=== PATIENT | female | born 1940 | race Caucasian/White ===

== ENCOUNTER → 2016-09-03 | Outpatient (CLI) | payer OTHER ==
[2016-09-03 13:58] LABS: Blood Urea Nitrogen 21 mg/dL (7-17); Non-African American GFR(MDRD) 51 (>60 ml/min/1.73 sqM)
--- NOTE | 2016-09-03 17:17 | CT ---
EXAMINATION TYPE: CT urogram wo/w con DATE OF EXAM: 09/03/2016 2:40 PM COMPARISON: NONE HISTORY: Patient having frequent UTI CT DLP: 1547 mGycm Automated exposure control for dose reduction was used. CONTRAST: Performed with IV Contrast, patient injected with 80 mL of Visipaque 320. TECHNIQUE: 3-D reconstructed images from a CT urogram or performed separately by the technologist on a separate computer and presented. 2-D reconstructed images are reviewed. Pre and postcontrast imagin g is performed. FINDINGS: Limited CT sections are obtained the lung bases which are unremarkable. CT ABDOMEN: There is a hypodensity within the right lobe liver measuring 1.2 cm may be a hepatic cyst . Spleen is normal density without discrete masses or cysts. The adrenal glands are normal. Pancreas is normal. Gallbladder is unremarkable. Vascular calcifications within the aorta. Inferior vena cava is normal. Some shotty lymphadenopathy may be in the periaortic region. Kidneys appear without masses or hydronephrosis. A cortical renal cyst measuring 0.8 cm on the mid le ft kidney. No hydroureter is evident. Ureters follow a normal caliber and course to the urinary bladder. Urinary bladder fills normally wit hout intraluminal defects. The right renal collecting system does appear somewhat more prominent naina n the left. There is beam hardening artifact from right hip prosthesis causing limitation on the eval uation. Uterus is unremarkable. Adnexal regions are clear. No loops of bowel without contrast appear unremark able. IMPRESSION: 1. RENAL COLLECTING SYSTEM VISUALIZED APPEARS WITHIN NORMAL LIMITS.
== END | disposition home or self-care (01) ==
LOC: RADCTMAIN 13:28
PROVIDERS: ATTEND Family Medicine
DX: N39.0 Urinary tract infection, site not specified (principal)
CPT/HCPCS: 82565; 84520; 74178; 36415; 74400; Q9967

== ENCOUNTER → 2016-11-20 | Outpatient (CLI) | payer OTHER ==
--- NOTE | 2016-11-20 14:18 | MM ---
Reason for exam: history of breast cancer, mastectomy. Last mammogram was performed 1 year ago. History: Patient is postmenopausal and has history of breast cancer at age 69. Family history of breast cancer in sister at age 60. Mastectomy of the right breast, January 15, 2010. Malignant right mammotome panel of the right breast, January 01, 2010. Chemotherapy, 2009. Took estrogen for 12 years. Taking antineoplastic for 6 months beginning at age 69. Physical Findings: Nurse did not find any significant physical abnormalities on exam. MG 3D Diag Mammo W/Cad LT CC and MLO view(s) were taken of the left breast. Prior study comparison: November 20, 2015, left breast MG 3d diag mammo w/cad LT. February 28, 2015, left breast MG diagnostic mammo LT w CAD. The breast tissue is heterogeneously dense. This may lower the sensitivity of mammography. No significant new findings when compared with previous films. These results were verbally communicated with the patient and result sheet given to the patient on 11/20/16. ASSESSMENT: Benign, BI-RAD 2 RECOMMENDATION: Follow-up diagnostic mammogram of the left breast in 1 year.
== END | disposition home or self-care (01) ==
LOC: RADMAMWWP 12:58
PROVIDERS: ATTEND Internal Medicine Hematology & Oncology
DX: Z85.3 Personal history of malignant neoplasm of breast (principal)
CPT/HCPCS: G0206; G0279

== ENCOUNTER 2017-03-12 07:45 | Day surgery (SDC) | payer OTHER ==
[2017-03-11 10:20] VITALS: BMI 31.7
[~2017-03-12 07:45] MED LIST: LACTATED RINGERS 1,000 ML IV SCH
[2017-03-12 08:12] VITALS: TEMP 97
[2017-03-12 08:16] LABS: Glucose,Whole Blood 126 mg/dL (75-99)
[2017-03-12] MEDS ORDERED: LIDOCAINE 1% 20 ML VIAL (10MG/ML) FOR IV START INTRADERMA ONE (08:16)
[2017-03-12] MEDS ORDERED: PROPOFOL 10 MG/ML 20 ML VIAL IV ONE (09:20)
[2017-03-12] MEDS ORDERED: LIDOCAINE 1% INJ 10MG/ML (20 ML MDV) ONE (09:20)
--- NOTE | 2017-03-12 09:32 | P.GSHP ---
History of Present Illness H&P Date: 03/12/17 Chief Complaint: GI bleed, anemia This a 68-year-old female referred from Dr. Mariel Nix. Patient presents today for EGD colonoscopy. She's had issues with GI bleed and anemia. She is Hemoccult-positive. Past Medical History Past Medical History: Cancer, Heart Failure, CVA/TIA, Diabetes Mellitus, GERD/ Reflux, Hypertension, Osteoarthritis (OA), Rheumatoid Arthritis (RA) Additional Past Medical History / Comment(s): hx. gout, urinary incontinence ( has bladder pacemaker-states not working), breast cancer 2010 w/chemo., Hx of TIA X 2, DIABETES - NO CURRENT MEDS., SOB WITH ACTIVITY., CARDIAC PACEMAKER ( 2016) PROBLEMS WITH CONSTIPATION AND DIARRHEA- STATES BLOOD IN STOOL., ANEMIA. History of Any Multi-Drug Resistant Organisms: None Reported Past Surgical History: Back Surgery, Bladder Surgery, Breast Surgery, Cholecystectomy, Joint Replacement, Orthopedic Surgery, Pacemaker Additional Past Surgical History / Comment(s): right hip replaced, right shoulder surg., right mastectomy, surg. for ectopic , spinal fusion, pacemaker, Bladder Pacemaker for urine incontinence. Past Anesthesia/Blood Transfusion Reactions: Previous Problems w/ Anesthesia Additional Past Anesthesia/Blood Transfusion Reaction / Comment(s): stopped breathing after D & C. Very Dizzy after Bladder device. Type of Cardiac Device: Permanent Pacemaker Device Placement Date:: 03/21/2016 Past Psychological History: Anxiety, Depression, PTSD Additional Psychological History / Comment(s): . Smoking Status: Former smoker Past Alcohol Use History: None Reported Additional Past Alcohol Use History / Comment(s): quit smoking 2005. smoked approx 20 yrs, 1 PPD. Past Drug Use History: None Reported - Past Family History Sister(s) Family Medical History: Cancer Additional Family Medical History / Comment(s): breast cancer Mother Family Medical History: CVA/TIA Additional Family Medical History / Comment(s): stroke at age 55 Father Family Medical History: Dementia, Myocardial Infarction ([place]) Additional Family Medical History / Comment(s): lived to be almost 100 Medications and Allergies Home Medications Medication Instructions Recorded Confirmed Type Allopurinol [Zyloprim] 300 mg PO HS 01/22/16 03/12/17 History Atenolol [Tenormin] 25 mg PO HS 01/22/16 03/12/17 History Citalopram Hydrobromide 40 mg PO HS 01/22/16 03/12/17 History [Citalopram HBr] Enalapril [Vasotec] 10 mg PO BID 01/22/16 03/12/17 History Hydrochlorothiazide 12.5 mg PO DAILY 01/22/16 03/12/17 History Simvastatin [Zocor] 10 mg PO HS 01/22/16 03/12/17 History risperiDONE [RisperDAL] 1 mg PO HS 01/22/16 03/12/17 History traMADol HCL [Ultram] 50 mg PO BID 03/19/16 03/12/17 History Aspirin [Adult Low Dose Aspirin EC] 81 mg PO DAILY 03/11/17 03/12/17 History Mirabegron [Myrbetriq] 50 mg PO DAILY 03/11/17 03/12/17 History Naloxegol Oxalate [Movantik] 25 mg PO DAILY 03/11/17 03/12/17 History Omeprazole [PriLOSEC] 40 mg PO QAM 03/11/17 03/12/17 History Allergies Allergy/AdvReac Type Severity Reaction Status Date / Time morphine Allergy Severe Nausea & Verified 03/12/17 08:11 Vomiting scopolamine Allergy Unknown Confusion, Verified 03/12/17 08:11 Aggressive, hitting. codeine Allergy Nausea & Verified 03/12/17 08:11 Vomiting Sulfa (Sulfonamide Allergy Rash/Hives Verified 03/12/17 08:11 Antibiotics) Surgical - Exam Vital Signs Temp Pulse Resp BP Pulse Ox 97.0 F L 95 16 145/78 96 03/12/17 08:04 03/12/17 08:04 03/12/17 08:04 03/12/17 08:04 03/12/17 08:04 - General well developed, no distress - Eyes PERRL - ENT normal pinna - Neck no masses - Respiratory normal expansion - Cardiovascular Rhythm: regular - Abdomen Abdomen: soft, non tender Results - Labs Abnormal Lab Results - Last 24 Hours (Table) 03/12/17 Range/Units 08:13 POC Glucose (mg/dL) 126 H (75-99) mg/dL Assessment and Plan Plan: Anemia, GI bleed. We'll perform EGD and colonoscopy.
--- NOTE | 2017-03-12 09:52 | P.OP ---
Date of Procedure: 03/12/17 Preoperative Diagnosis: GI bleed Anemia Postoperative Diagnosis: Antral gastritis Hiatal hernia Esophagitis Diverticulosis Procedure(s) Performed: EGD Colonoscopy Implants: Anesthesia: MAC Surgeon: Javier Grimes Pathology: other (Antrum, esophagus) Condition: stable Disposition: PACU Indications for Procedure: Operative Findings: Description of Procedure: The patient's placed on the endoscopy table in the lateral position. She received IV sedation. The gastroscope some placed oropharynx and passed in the esophagus and stomach. Scope was then placed through the pylorus. The first and second portion of the duodenum appeared normal. The scope was then brought back the antrum and this appeared mildly inflamed. A biopsies performed. The scope was unretroflexed and remainder of the stomach appeared normal. There was a hiatal hernia visualized. The GE junction was at 38 7 is. The distal esophagus appeared mildly inflamed and a biopsies performed. Scope was then withdrawn and the proximal esophagus appeared normal. Scope was withdrawn for patient. Next digital rectal exam was performed which revealed no abnormalities. The flexible colonoscope was then placed patient anus passed throughout the entire colon. The ileocecal valve was visualized. The cecum, ascending and transverse colon appeared normal. In the descending; was mild diverticular changes. Scope was then brought back the rectum and this appeared normal. Scope was withdrawn for patient.
[2017-03-12 10:21] VITALS: BP 156/82; PULSE 73; RESP 18
== END 2017-03-12 11:19 | disposition home or self-care (01) ==
LOC: ORWHC2ENDO 07:45
PROVIDERS: ATTEND Surgery
DX: R19.5 Other fecal abnormalities (principal); K31.9 Disease of stomach and duodenum, unspecified; K57.30 Diverticulosis of large intestine without perforation or abscess without bleeding; E11.9 Type 2 diabetes mellitus without complications; I10 Essential (primary) hypertension; K21.0 Gastro-esophageal reflux disease with esophagitis; M19.90 Unspecified osteoarthritis, unspecified site; D64.9 Anemia, unspecified; I50.9 Heart failure, unspecified; K44.9 Diaphragmatic hernia without obstruction or gangrene; E78.5 Hyperlipidemia, unspecified; F32.9 Major depressive disorder, single episode, unspecified; M06.9 Rheumatoid arthritis, unspecified; Z79.899 Other long term (current) drug therapy; Z79.82 Long term (current) use of aspirin; Z79.891 Long term (current) use of opiate analgesic; Z88.5 Allergy status to narcotic agent; Z88.2 Allergy status to sulfonamides; Z86.73 Personal history of transient ischemic attack (TIA), and cerebral infarction without residual deficits; Z87.891 Personal history of nicotine dependence; Z90.11 Acquired absence of right breast and nipple
CPT/HCPCS: 88305; 88342; 45378; 43239; J2001; J2704

== ENCOUNTER 2017-04-16 10:00 | Inpatient (IN) | payer OTHER ==
[2017-04-14 17:40] VITALS: BMI 30.2
[~2017-04-16 10:00] MED LIST changes: +DEXAMETHASONE SOD PHOSPHATE 10 MG/ML 1 ML VIAL IV ONE; +HEPARIN SODIUM,PORCINE 5,000 UNIT/ML 1 ML VIAL SQ ONE; +LIDOCAINE 1% 20 ML VIAL (10MG/ML) FOR IV START INTRADERMA PRN; +ONDANSETRON 4 MG/2 ML VIAL IVP ONE; +ceFAZolin 2 GM in SODIUM CHLORIDE 0.9% 100 ML IVPB ONE; +fentaNYL (PF) 50 MCG/ML 2 ML AMP IV PRN
[2017-04-16 12:33] LABS: Glucose,Whole Blood 102 mg/dL (75-99)
[2017-04-16] MEDS ORDERED: BUPIVACAINE (PF) 0.25% 30 ML VIAL SQ ONE ×2 (13:22→14:00)
[2017-04-16] MEDS ORDERED: LIDOCAINE 2%-EPI 1:100,000 20 ML VIAL SQ ONE ×2 (13:22→14:00)
--- NOTE | 2017-04-16 13:22 | P.GSHP ---
History of Present Illness H&P Date: 04/16/17 Chief Complaint: GERD This is a 68-year-old female referred from Dr. Mariel Nix.The patient has had long-standing problems with reflux esophagitis. The patient underwent recent EGD is found have evidence of esophagitis. Patient has been well informed on the procedure of laparoscopic Philip fundoplication. The patient is aware the risk of the conversion to the open procedure, risk of injury to the stomach, liver and spleen. The patient is also a risk of recurrent GERD and dysphagia symptoms. The patient understands there is a postoperative diet of full liquids for 2 weeks after surgery. - Constitutional Constitutional: Reports as per HPI Past Medical History Past Medical History: Cancer, Heart Failure, CVA/TIA, Diabetes Mellitus, GERD/ Reflux, Hypertension, Rheumatoid Arthritis (RA) Additional Past Medical History / Comment(s): gout, urinary incontinence (has bladder pacemaker-states not working), breast cancer 2009 ,DIABETES -diet control., PROBLEMS WITH CONSTIPATION AND DIARRHEA- , ANEMIA. hx migraines, TIA 20 yrs ago, heart murmer, hiatal hernia, diverticulitis, History of Any Multi-Drug Resistant Organisms: None Reported Past Surgical History: Back Surgery, Bladder Surgery, Breast Surgery, Cholecystectomy, Joint Replacement, Orthopedic Surgery, Pacemaker, Tonsillectomy Additional Past Surgical History / Comment(s): right hip replacement, right shoulder surgery., right mastectomy, surgery for ectopic , spinal fusion, pacemaker, Bladder pacemaker for urine incontinence. philip fundoplication Past Anesthesia/Blood Transfusion Reactions: Previous Problems w/ Anesthesia, Postoperative Nausea & Vomiting (PONV) Additional Past Anesthesia/Blood Transfusion Reaction / Comment(s): stopped breathing after D & C. Very Dizzy after bladder pacemaker surgery Type of Cardiac Device: Permanent Pacemaker Device Placement Date:: 03/21/2016 Smoking Status: Former smoker - Past Family History Sister(s) Family Medical History: Cancer Additional Family Medical History / Comment(s): breast cancer Mother Family Medical History: CVA/TIA Additional Family Medical History / Comment(s): stroke at age 55 Father Family Medical History: Dementia, Myocardial Infarction ([place]) Additional Family Medical History / Comment(s): lived to be almost 100 Medications and Allergies Home Medications Medication Instructions Recorded Confirmed Type Allopurinol [Zyloprim] 300 mg PO HS 01/22/16 04/16/17 History Atenolol [Tenormin] 25 mg PO HS 01/22/16 04/16/17 History Citalopram Hydrobromide 40 mg PO HS 01/22/16 04/16/17 History [Citalopram HBr] Enalapril [Vasotec] 10 mg PO BID 01/22/16 04/14/17 History Simvastatin [Zocor] 10 mg PO HS 01/22/16 04/16/17 History risperiDONE [RisperDAL] 1 mg PO HS 01/22/16 04/16/17 History traMADol HCL [Ultram] 50 mg PO BID 03/19/16 04/14/17 History Aspirin [Adult Low Dose Aspirin EC] 81 mg PO DAILY 03/11/17 04/14/17 History Mirabegron [Myrbetriq] 50 mg PO DAILY 03/11/17 04/14/17 History Naloxegol Oxalate [Movantik] 25 mg PO DAILY 03/11/17 04/16/17 History Omeprazole [PriLOSEC] 40 mg PO QAM 03/11/17 04/14/17 History Furosemide [Lasix] 20 mg PO DAILY 04/14/17 04/16/17 History Allergies Allergy/AdvReac Type Severity Reaction Status Date / Time morphine Allergy Severe Nausea & Verified 04/14/17 17:24 Vomiting scopolamine Allergy Unknown Confusion, Verified 04/14/17 17:24 Aggressive, hitting. codeine Allergy Nausea & Verified 04/14/17 17:24 Vomiting Sulfa (Sulfonamide Allergy Rash/Hives Verified 04/14/17 17:24 Antibiotics) Surgical - Exam Vital Signs Temp Pulse Resp BP Pulse Ox 98.1 F 92 16 144/86 95 04/16/17 12:21 04/16/17 12:21 04/16/17 12:21 04/16/17 12:21 04/16/17 12:21 - General well developed, no distress - Eyes PERRL - ENT normal pinna - Neck no masses - Respiratory normal expansion - Cardiovascular Rhythm: regular - Abdomen Abdomen: soft, non tender Results - Labs Abnormal Lab Results - Last 24 Hours (Table) 04/16/17 Range/Units 12:28 POC Glucose (mg/dL) 102 H (75-99) mg/dL Assessment and Plan Plan: We will perform laparoscopic Philip fundal plication.
[2017-04-16] MEDS ORDERED: fentaNYL (PF) 50 MCG/ML 2 ML AMP ONE (13:30)
[2017-04-16] MEDS ORDERED: MIDAZOLAM 2 MG/2 ML VIAL ONE (13:30)
[2017-04-16] MEDS ORDERED: ROCURONIUM BROMIDE 10 MG/ML 10 ML VIAL IV ONE (13:30)
[2017-04-16] MEDS ORDERED: SUCCINYLCHOLINE CHLORIDE 100 MG/5 ML SYR IV ONE (13:30)
[2017-04-16] MEDS ORDERED: LIDOCAINE 1% INJ 10MG/ML (20 ML MDV) ONE (13:30)
[2017-04-16] MEDS ORDERED: GLYCOPYRROLATE 0.2 MG/ML 2 ML VIAL ONE (13:30)
[2017-04-16] MEDS ORDERED: NEOSTIGMINE 1 MG/ML 10 ML VIAL ONE (13:30)
[2017-04-16] MEDS ORDERED: PROPOFOL 10 MG/ML 20 ML VIAL IV ONE (13:30)
[2017-04-16] MEDS ORDERED: ONDANSETRON 4 MG/2 ML VIAL IVP PRN (14:49)
[2017-04-16] MEDS ORDERED: LABETALOL 5 MG/ML VIAL MDV IVP ONE (15:16)
[2017-04-16] MEDS: HYDROmorphone 1 MG/ML 1 ML SYRINGE IVP ONE ×2 (15:25→15:41)
[2017-04-16] MEDS ORDERED: LACTATED RINGERS 1,000 ML IV ONE ×2 (15:40)
--- NOTE | 2017-04-16 16:42 | P.OP ---
Date of Procedure: 04/16/17 Preoperative Diagnosis: GERD Postoperative Diagnosis: GERD Recurrent hiatal hernia Procedure(s) Performed: Laparoscopic Minnie fundal plication Implants: Anesthesia: RICOA Surgeon: Javier Grimes Estimated Blood Loss (ml): 5 Pathology: none sent Condition: stable Disposition: PACU Indications for Procedure: Operative Findings: Description of Procedure: Patient's placed the operative table in the supine position. She received general anesthesia. She was then placed in dorsal 5 position. Her abdomen was prepped and draped usual sterile fashion. The skin incision sites were anesthetized 1% local Xylocaine. And then using an 11 blade the skin was incised in the left periumbilical area. Using an optical 5 mm trocar the perineal cavity is entered under position. And then the abdomen was insufflated. After adequate insufflation the laparoscope placed back the pleural cavity. The 5 mm trochars placed in the right upper quadrant right lateral position left lateral position and the left epigastric area. The left lateral lobe liver was retracted. There were adhesions in the stomach and the left lateral lobe liver. These were lysed using sharp dissection. The patient appeared to have a previous fundal plication wrap. The hiatus was examined. There was a recurrent hiatal hernia. This was dissected using Harmonic scissors. The recurrent hiatal hernias repaired with 2-0 Ethibond suture. The sutures were secured side up device. The fundoplication wrap appeared to be in appropriate position the hand wrap was left intact and not dissected. This point the abdomen was irrigated digital no bleeding seen. The stomach was insufflated methylene blue normal saline. 5 mL of methylene blue normal saline. Used to insufflate the stomach there is known 70 weeks. The abdomen was irrigated. There is no bleeding seen. Trochars were then withdrawn. The skin was closed interrupted 3-0 Monocryl suture. Dermabond was applied. Patient was sent to recovery in stable condition.
[2017-04-16 17:57] LABS: Basophils % (A) 1 %; CH 31.8; CHCM 31.6; Eosinophils # (A) 0.1 k/uL (0-0.7); Eosinophils % (A) 1 %; HCT 37.3 % (34.0-46.0); HDW 2.57; HGB 11.5 gm/dL (11.4-16.0); Luc # (Auto) 0.07; Luc % (Auto) 1; Lymphocytes # (A) 0.6 k/uL (1.0-4.8); Lymphocytes % (A) 6 %; MCH 31.1 pg (25.0-35.0); MCHC 30.8 g/dL (31.0-37.0); MCV 101.1 fL (80.0-100.0); Macrocytosis Slight; Mean Platelet Volume 7.5; Monocytes # (A) 0.2 k/uL (0-1.0); Monocytes % (A) 2 %; Neutrophils # (A) 8.1 k/uL (1.3-7.7); Neutrophils % (A) 90 %; RBC 3.69 m/uL (3.80-5.40); RDW 15.2 % (11.5-15.5); WBC 9.1 k/uL (3.8-10.6); WBC (Perox) 9.37
[2017-04-16 18:14] LABS: Anion Gap 11 mmol/L; Blood Urea Nitrogen 14 mg/dL (7-17); Calcium 9.4 mg/dL (8.4-10.2); Carbon Dioxide 22 mmol/L (22-30); Chloride 109 mmol/L (98-107); Glucose 145 mg/dL (74-99); Non-African American GFR(MDRD) 60 (>60 ml/min/1.73 sqM); Potassium 4.1 mmol/L (3.5-5.1); Sodium 142 mmol/L (137-145)
[2017-04-16] MEDS ORDERED: risperiDONE 1 MG TAB PO SCH (21:00)
[2017-04-16] MEDS ORDERED: ALLOPURINOL 300 MG TAB PO SCH (21:00)
[2017-04-16] MEDS ORDERED: ATORVASTATIN 10 MG TAB PO SCH (21:00)
[2017-04-16] MEDS ORDERED: CITALOPRAM HYDROBROMIDE 20 MG TAB PO SCH (21:00)
[2017-04-16] MEDS: D5-0.45% NACL WITH KCL 20MEQ/L 1,000 ML IV SCH (21:10)
[2017-04-17] MEDS: HYDROmorphone 1 MG/ML 1 ML SYRINGE IVP PRN ×2 (00:40→05:51)
[2017-04-17] MEDS ORDERED: PANTOPRAZOLE 40 MG TABLET PO SCH (07:30)
[2017-04-17] MEDS: D5-0.45% NACL WITH KCL 20MEQ/L 1,000 ML IV SCH (07:37)
[2017-04-17] MEDS ORDERED: FUROSEMIDE 20 MG TAB PO SCH (09:00)
[2017-04-17] MEDS ORDERED: LISINOPRIL 20 MG TAB PO SCH (09:00)
[2017-04-17] MEDS ORDERED: ENOXAPARIN 40 MG/0.4 ML SYRINGE SQ SCH (09:00)
[2017-04-17] MEDS ORDERED: NON-FORMULARY DRUG (Mirabegron [Myrbetriq] 50 MG) PO SCH (09:00)
--- NOTE | 2017-04-17 09:03 | FL ---
EXAMINATION TYPE: FL UGI w esophagus DATE OF EXAM: 04/17/2017 COMPARISON: NONE HISTORY: Post Minnie TECHNIQUE: A single contrast UGI study is performed. FINDINGS: Communications Director image of the abdomen shows no gross abnormality. The distal esophagus shows slightly slowed motility and emptying into the stomach with no evidence of obstruction. No evidence of hiatal hernia or stricture noted. The stomach shows normal distensibility, peristalsis, and mucosal folds. No significant gastroesopha geal reflux was seen during real time performance of this study. The duodenal bulb, sweep, and proximal small bowel loops are unremarkable. IMPRESSION: Mild delay in propulsion of contrast through the gastroesophageal junction, likely relate d to postoperative edema with no evidence of obstruction or leak.
[2017-04-17] MEDS ORDERED: HYDROcodone/APAP 5-325MG 1 EACH TAB PO PRN (10:36)
[2017-04-17] MEDS ORDERED: ACETAMINOPHEN TAB 325 MG TAB PO PRN (10:37)
[2017-04-17 11:02] VITALS: RESP 20
[2017-04-17 12:19] VITALS: BP 127/73; PULSE 90; TEMP 97.2
--- NOTE | 2017-04-17 12:21 | P.DS ---
Providers Date of admission: 04/16/17 10:52 Expected date of discharge: 04/17/17 Attending physician: Javier Grimes Consults: 04/16/17 17:03 Consult Physician Routine Consulting Provider: Yvrose Hurley Consult Reason/Comments: medical management Do you want consulting provider notified?: Yes Primary care physician: Mariel Nix [facility] Course: This is a 68-year-old female referred from Dr. Mariel Nix.The patient has had long-standing problems with reflux esophagitis. The patient underwent recent EGD is found have evidence of esophagitis. Patient has been well informed on the procedure of laparoscopic Minnie fundoplication. The patient understands there is a postoperative diet of full liquids for 2 weeks after surgery. On April 16 the patient elected to proceed underwent laparoscopically Minnie fundoplication for symptomatic esophageal reflux disease with recurrent hiatal hernia postprocedure no new events. Patient was felt to be stable and appropriate proceed with a discharge Impression discharge diagnosis Status post April 16 laparoscopic Minnie fundalplication for symptomatic reflux esophagitis History of recurrent hiatal hernia Hypertension Symptomatic esophageal reflux disease History of right breast cancer status post right mastectomy The above impression and plan of care have been discussed and directed by signing physician. Renetta Chicas nurse practitioner acting as scribe for signing physician. Plan - Discharge Summary New Discharge Prescriptions: Continue Allopurinol [Zyloprim] 300 mg PO HS Citalopram Hydrobromide [Citalopram HBr] 40 mg PO HS Enalapril [Vasotec] 10 mg PO BID Atenolol [Tenormin] 25 mg PO HS risperiDONE [RisperDAL] 1 mg PO HS Simvastatin [Zocor] 10 mg PO HS traMADol HCL [Ultram] 50 mg PO BID Mirabegron [Myrbetriq] 50 mg PO DAILY Naloxegol Oxalate [Movantik] 25 mg PO DAILY Aspirin [Adult Low Dose Aspirin EC] 81 mg PO DAILY Furosemide [Lasix] 20 mg PO DAILY Discontinued Omeprazole [PriLOSEC] 40 mg PO QAM Discharge Medication List Allopurinol [Zyloprim] 300 mg PO HS 01/22/16 [History] Atenolol [Tenormin] 25 mg PO HS 01/22/16 [History] Citalopram Hydrobromide [Citalopram HBr] 40 mg PO HS 01/22/16 [History] Enalapril [Vasotec] 10 mg PO BID 01/22/16 [History] Simvastatin [Zocor] 10 mg PO HS 01/22/16 [History] risperiDONE [RisperDAL] 1 mg PO HS 01/22/16 [History] traMADol HCL [Ultram] 50 mg PO BID 03/19/16 [History] Aspirin [Adult Low Dose Aspirin EC] 81 mg PO DAILY 03/11/17 [History] Mirabegron [Myrbetriq] 50 mg PO DAILY 03/11/17 [History] Naloxegol Oxalate [Movantik] 25 mg PO DAILY 03/11/17 [History] Furosemide [Lasix] 20 mg PO DAILY 04/14/17 [History] Follow up Appointment(s)/Referral(s): Javier Grimes MD [STAFF PHYSICIAN] - 1 Week Mariel Nix DO [Primary Care Provider] - 1 Week Patient Instructions/Handouts: *Surgery [facility] - ([facility] [facility]) Lap Minnie Fundiplication Post-Op Instructions, Adult Laparoscopic Minnie Fundoplication ( [place]) Discharge Disposition: HOME SELF-CARE
--- NOTE | 2017-04-17 12:33 | P.CONS ---
History of Present Illness - Reason for Consult Consult date: 04/17/17 Medical management Requesting physician: Javier Grimes - Chief Complaint Status post Philip fundoplication - History of Present Illness This is a 76-year-old female with a known history of TIA, diabetes mellitus, GERD, CHF with pacemaker placement. Patient underwent Philip publication yesterday with Dr. Grimes. She tolerated surgery well. The esophagram showed mild delay in propulsion of contrast through the GE junction likely related to postop edema with no evidence of obstruction or leak. Patient is tolerating her liquid diet no nausea or vomiting. Denies any chest pain or shortness of breath. Denies any burning with urination. Denies any bowel movement changes. She is passing gas. Review of Systems Please refer to HPI otherwise unremarkable Past Medical History Past Medical History: Cancer, Heart Failure, CVA/TIA, Diabetes Mellitus, GERD/ Reflux, Hypertension, Rheumatoid Arthritis (RA) Additional Past Medical History / Comment(s): gout, urinary incontinence (has bladder pacemaker-states not working), breast cancer 2009 ,DIABETES -diet control., PROBLEMS WITH CONSTIPATION AND DIARRHEA- , ANEMIA. hx migraines, TIA 20 yrs ago, heart murmer, hiatal hernia, diverticulitis, History of Any Multi-Drug Resistant Organisms: None Reported Past Surgical History: Back Surgery, Bladder Surgery, Breast Surgery, Cholecystectomy, Joint Replacement, Orthopedic Surgery, Pacemaker, Tonsillectomy Additional Past Surgical History / Comment(s): right hip replacement, right shoulder surgery., right mastectomy, surgery for ectopic , spinal fusion, pacemaker, Bladder pacemaker for urine incontinence. philip fundoplication Past Anesthesia/Blood Transfusion Reactions: Previous Problems w/ Anesthesia, Postoperative Nausea & Vomiting (PONV) Additional Past Anesthesia/Blood Transfusion Reaction / Comm: stopped breathing after D & C. Very Dizzy after bladder pacemaker surgery Type of Cardiac Device: Permanent Pacemaker Device Placement Date:: 03/21/2016 Past Psychological History: Anxiety, Depression, PTSD Additional Psychological History / Comment(s): . Smoking Status: Former smoker Past Alcohol Use History: None Reported Additional Past Alcohol Use History / Comment(s): quit smoking 2005. smoked approx 20 yrs, 1 PPD. Past Drug Use History: None Reported - Past Family History Sister(s) Family Medical History: Cancer Additional Family Medical History / Comment(s): breast cancer Mother Family Medical History: CVA/TIA Additional Family Medical History / Comment(s): stroke at age 55 Father Family Medical History: Dementia, Myocardial Infarction ([place]) Additional Family Medical History / Comment(s): lived to be almost 100 Medications and Allergies Home Medications Medication Instructions Recorded Confirmed Type Allopurinol [Zyloprim] 300 mg PO HS 01/22/16 04/16/17 History Atenolol [Tenormin] 25 mg PO HS 01/22/16 04/16/17 History Citalopram Hydrobromide 40 mg PO HS 01/22/16 04/16/17 History [Citalopram HBr] Enalapril [Vasotec] 10 mg PO BID 01/22/16 04/16/17 History Simvastatin [Zocor] 10 mg PO HS 01/22/16 04/16/17 History risperiDONE [RisperDAL] 1 mg PO HS 01/22/16 04/16/17 History traMADol HCL [Ultram] 50 mg PO BID 03/19/16 04/16/17 History Aspirin [Adult Low Dose Aspirin EC] 81 mg PO DAILY 03/11/17 04/16/17 History Mirabegron [Myrbetriq] 50 mg PO DAILY 03/11/17 04/16/17 History Naloxegol Oxalate [Movantik] 25 mg PO DAILY 03/11/17 04/16/17 History Furosemide [Lasix] 20 mg PO DAILY 04/14/17 04/16/17 History Allergies Allergy/AdvReac Type Severity Reaction Status Date / Time Iodine and Iodide Containing Allergy Mild Rash/Hives Verified 04/17/17 09:00 Produc Sulfa (Sulfonamide Allergy Rash/Hives Verified 04/14/17 17:24 Antibiotics) morphine AdvReac Severe Nausea & Verified 04/16/17 23:50 Vomiting scopolamine AdvReac Unknown Confusion, Verified 04/16/17 23:50 Aggressive, hitting. codeine AdvReac Nausea & Verified 04/16/17 23:50 Vomiting Physical Exam Vitals: Vital Signs Temp Pulse Pulse Resp BP BP Pulse Ox 04/17/17 12:18 97.2 F L 90 20 127/73 94 L 04/17/17 08:25 97.9 F 95 20 124/72 95 04/16/17 21:34 92 124/75 04/16/17 19:34 84 147/86 93 L 04/16/17 18:34 87 138/80 91 L 04/16/17 17:36 98 170/100 90 L 04/16/17 17:04 87 158/92 96 04/16/17 16:49 86 142/92 95 04/16/17 16:34 89 152/85 90 L 04/16/17 16:19 97.1 F L 88 16 147/90 91 L 04/16/17 15:55 87 16 158/84 98 04/16/17 15:40 86 16 155/87 96 04/16/17 15:25 94 16 185/98 99 04/16/17 15:10 111 H 18 187/94 99 04/16/17 14:55 98.0 F 109 H 18 187/89 96 04/16/17 12:30 98.1 F 92 16 144/86 95 Intake and Output 04/16/17 04/17/17 04/17/17 22:59 06:59 14:59 Intake Total 730 300 Output Total 500 150 975 Balance 230 -150 -675 Intake: IV 150 Oral 580 300 Output: Urine 500 150 975 Other: # Voids 1 1 2 Weight 72.575 kg 72.575 kg Patient Weight 04/18/17 06:59 Weight 72.575 kg Head normocephalic Neck supple Lungs clear to auscultation bilaterally no wheezing or crackles Heart regular rate and rhythm S1-S2, no rub or gallop Abdomen is soft nontender nondistended positive bowel sounds no hepatosplenomegaly Extremities no edema Neuro alert and orientated to 3 Results CBC & Chem 7: 04/16/17 17:34 04/16/17 17:34 Labs: Abnormal Lab Results - Last 24 Hours (Table) 04/16/17 04/16/17 04/16/17 Range/Units 12:28 17:34 17:34 RBC 3.69 L (3.80-5.40) m/uL MCV 101.1 H (80.0-100.0) fL MCHC 30.8 L (31.0-37.0) g/dL Neutrophils # 8.1 H (1.3-7.7) k/uL Lymphocytes # 0.6 L (1.0-4.8) k/uL Chloride 109 H (98-107) mmol/L Glucose 145 H (74-99) mg/dL POC Glucose (mg/dL) 102 H (75-99) mg/dL Assessment and Plan Plan: 1. GERD status post Philip fundoplication. Esophagram showing mild delay and propulsion of contrast through the GE junction likely related to postop edema with no evidence of obstruction or leak. She is tolerating a clear liquid diet. Surgery is scheduled for discharge this afternoon. 2. History of TIA 3. Diabetes mellitus type 2 diet controlled 4. Essential hypertension blood pressure stable 5. Hyperlipidemia continue statin Thank you for this consultation. Patient is medically stable for discharge. We 'll have her follow-up with her PCP in 1 week. Time with Patient: Greater than 30 (Greater than 50% of the total time spent in counseling and coordination of care.I performed an examination of the patient and discussed their management with the physician Document Management Consultant. I have reviewed the Physician Document Management Consultant's notes and agree with the documented findings and plan of care)
== END 2017-04-17 14:00 | disposition home or self-care (01) | DRG 328 ==
LOC: 2ORWHC 10:52 → EDSTATUS 12:55 → 6PED 15:48
PROVIDERS: ADMIT Surgery; ATTEND Surgery
PROC: 0DV44ZZ Restriction of Esophagogastric Junction, Percutaneous Endoscopic Approach (ICD-10-PCS; principal; 2017-04-16 13:15)
DX: K21.9 Gastro-esophageal reflux disease without esophagitis (principal); I11.0 Hypertensive heart disease with heart failure; E11.9 Type 2 diabetes mellitus without complications; I50.9 Heart failure, unspecified; F43.10 Post-traumatic stress disorder, unspecified; K44.9 Diaphragmatic hernia without obstruction or gangrene; M06.9 Rheumatoid arthritis, unspecified; M10.9 Gout, unspecified; Z79.82 Long term (current) use of aspirin; Z79.899 Other long term (current) drug therapy; Z80.3 Family history of malignant neoplasm of breast; Z82.49 Family history of ischemic heart disease and other diseases of the circulatory system; Z85.3 Personal history of malignant neoplasm of breast; Z86.73 Personal history of transient ischemic attack (TIA), and cerebral infarction without residual deficits; Z87.891 Personal history of nicotine dependence; Z90.11 Acquired absence of right breast and nipple; Z95.0 Presence of cardiac pacemaker; Z96.641 Presence of right artificial hip joint; Z98.1 Arthrodesis status
CPT/HCPCS: 74240; 80048; 85025

== ENCOUNTER → 2017-09-23 | Outpatient (CLI) | payer OTHER ==
[2017-09-23 17:50] LABS: Anion Gap 13 mmol/L; Blood Urea Nitrogen 6 mg/dL (7-17); Carbon Dioxide 27 mmol/L (22-30); Chloride 102 mmol/L (98-107); Magnesium 1.6 mg/dL (1.6-2.3); Potassium 3.8 mmol/L (3.5-5.1); Sodium 142 mmol/L (137-145)
== END | disposition home or self-care (01) ==
LOC: LABWHC1 16:58
PROVIDERS: ATTEND Internal Medicine Cardiovascular Disease
DX: I47.2 Ventricular tachycardia (principal)
CPT/HCPCS: 36415; 80051; 82565; 83735; 84520

== ENCOUNTER 2017-12-20 09:04 | Observation (INO) | payer OTHER ==
[2017-12-20] MEDS ORDERED: ASPIRIN 81 MG PO STA (09:26)
[2017-12-20] MEDS ORDERED: NITROGLYCERIN SL TABS 0.4 MG TAB SUBLINGUAL STA ×3 (09:26)
--- NOTE | 2017-12-20 09:29 | ED ---
General Adult HPI - General Chief complaint: Chest Pain Stated complaint: Chest pain Time Seen by Provider: 12/20/17 09:12 Source: patient, RN notes reviewed Mode of arrival: wheelchair Limitations: no limitations - History of Present Illness Initial comments: Patient is a pleasant 77-year-old female presenting to the emergency Department with complaints of chest discomfort. Onset was this morning when she woke up. Discomfort is moderate rated 5/10. Patient has a difficult time describing the type of discomfort she is. Seem. Patient does have associated dyspnea however that has resolved. No nausea or diaphoresis. There is some radiation up towards the neck. Discomfort is positional. - Related Data Home Medications Medication Instructions Recorded Confirmed Allopurinol [Zyloprim] 300 mg PO HS 01/22/16 04/16/17 Atenolol [Tenormin] 25 mg PO HS 01/22/16 04/16/17 Citalopram Hydrobromide 40 mg PO HS 01/22/16 04/16/17 [Citalopram HBr] Enalapril [Vasotec] 10 mg PO BID 01/22/16 04/16/17 Simvastatin [Zocor] 10 mg PO HS 01/22/16 04/16/17 risperiDONE [RisperDAL] 1 mg PO HS 01/22/16 04/16/17 traMADol HCL [Ultram] 50 mg PO BID 03/19/16 04/16/17 Aspirin [Adult Low Dose Aspirin EC] 81 mg PO DAILY 03/11/17 04/16/17 Mirabegron [Myrbetriq] 50 mg PO DAILY 03/11/17 04/16/17 Naloxegol Oxalate [Movantik] 25 mg PO DAILY 03/11/17 04/16/17 Furosemide [Lasix] 20 mg PO DAILY 04/14/17 04/16/17 Allergies Allergy/AdvReac Type Severity Reaction Status Date / Time Iodine and Iodide Containing Allergy Mild Rash/Hives Verified 12/20/17 09:11 Produc Sulfa (Sulfonamide Allergy Rash/Hives Verified 12/20/17 09:11 Antibiotics) morphine AdvReac Severe Nausea & Verified 12/20/17 09:11 Vomiting scopolamine AdvReac Unknown Confusion, Verified 12/20/17 09:11 Aggressive, hitting. codeine AdvReac Nausea & Verified 04/21/18 09:11 Vomiting Review of Systems ROS Statement: Those systems with pertinent positive or pertinent negative responses have been documented in the HPI. ROS Other: All systems not noted in ROS Statement are negative. Constitutional: Denies: fever Eyes: Denies: eye pain ENT: Denies: ear pain Respiratory: Reports: dyspnea. Denies: cough Cardiovascular: Reports: chest pain Endocrine: Denies: fatigue Gastrointestinal: Denies: nausea, vomiting Genitourinary: Denies: dysuria Musculoskeletal: Denies: back pain Skin: Denies: rash Neurological: Denies: weakness Past Medical History Past Medical History: Cancer, Heart Failure, CVA/TIA, Diabetes Mellitus, GERD/ Reflux, Hypertension, Rheumatoid Arthritis (RA) Additional Past Medical History / Comment(s): gout, urinary incontinence (has bladder pacemaker-states not working), breast cancer 2009 ,DIABETES -diet control., PROBLEMS WITH CONSTIPATION AND DIARRHEA- , ANEMIA. hx migraines, TIA 20 yrs ago, heart murmer, hiatal hernia, diverticulitis, History of Any Multi-Drug Resistant Organisms: None Reported Past Surgical History: Back Surgery, Bladder Surgery, Breast Surgery, Cholecystectomy, Joint Replacement, Orthopedic Surgery, Pacemaker, Tonsillectomy Additional Past Surgical History / Comment(s): right hip replacement, right shoulder surgery., right mastectomy, surgery for ectopic , spinal fusion, pacemaker, Bladder pacemaker for urine incontinence. philip fundoplication Past Anesthesia/Blood Transfusion Reactions: Previous Problems w/ Anesthesia, Postoperative Nausea & Vomiting (PONV) Additional Past Anesthesia/Blood Transfusion Reaction / Comment(s): stopped breathing after D & C. Very Dizzy after bladder pacemaker surgery Type of Cardiac Device: Permanent Pacemaker Device Placement Date:: 03/21/2016 Past Psychological History: Anxiety, Depression, PTSD Smoking Status: Former smoker Past Alcohol Use History: None Reported Past Drug Use History: None Reported - Past Family History Sister(s) Family Medical History: Cancer Additional Family Medical History / Comment(s): breast cancer Mother Family Medical History: CVA/TIA Additional Family Medical History / Comment(s): stroke at age 55 Father Family Medical History: Dementia, Myocardial Infarction ([place]) Additional Family Medical History / Comment(s): lived to be almost 100 General Exam Limitations: no limitations General appearance: alert, in no apparent distress Head exam: Present: atraumatic Eye exam: Present: normal appearance Neck exam: Present: normal inspection Respiratory exam: Present: normal lung sounds bilaterally. Absent: chest wall tenderness Cardiovascular Exam: Present: regular rate, normal rhythm Expanded Peripheral pulses: 2+: Radial (R), Radial (L), Dorsalis Pedis (R), Dorsalis Pedis (L) GI/Abdominal exam: Present: soft. Absent: tenderness Extremities exam: Present: normal inspection. Absent: pedal edema, calf tenderness Neurological exam: Present: alert Psychiatric exam: Present: normal affect, normal mood Skin exam: Present: normal color Course Vital Signs 12/20/17 12/20/17 12/20/17 09:08 09:37 09:42 Temperature 98.4 F Pulse Rate 82 84 84 Respiratory 18 18 18 Rate Blood Pressure 144/71 154/71 135/66 O2 Sat by Pulse 92 L 98 97 Oximetry 12/20/17 12/20/17 12/20/17 09:47 11:00 12:00 Temperature Pulse Rate 83 90 82 Respiratory 20 20 20 Rate Blood Pressure 122/62 127/71 140/78 O2 Sat by Pulse 97 97 97 Oximetry 12/20/17 13:15 Temperature Pulse Rate 90 Respiratory 20 Rate Blood Pressure 133/71 O2 Sat by Pulse 97 Oximetry EKG Findings - EKG Comments: EKG Findings:: Paced rhythm at 85. QRS 160. QTC 466. QTc 554. Right axis. Wide complex QRS. Nonspecific T waves. Medical Decision Making - Medical Decision Making Patient reevaluated and resting comfortably in bed. Patient updated on results and plan. Case discussed in detail with Dr. Hurley, who will admit for Dr. Nix. Consult only for cardiology at this time. - Lab Data Result diagrams: 12/20/17 09:20 12/20/17 09:20 Lab Results 12/20/17 12/20/17 12/20/17 Range/Units 09:20 09:20 09:20 WBC 11.5 H (3.8-10.6) k/uL RBC 3.85 (3.80-5.40) m/uL Hgb 11.1 L (11.4-16.0) gm/dL Hct 34.7 (34.0-46.0) % MCV 90.3 (80.0-100.0) fL MCH 28.9 (25.0-35.0) pg MCHC 32.0 (31.0-37.0) g/dL RDW 15.2 (11.5-15.5) % Plt Count 201 (150-450) k/uL Neutrophils % 83 % Lymphocytes % 9 % Monocytes % 4 % Eosinophils % 2 % Basophils % 0 % Neutrophils # 9.6 H (1.3-7.7) k/uL Lymphocytes # 1.1 (1.0-4.8) k/uL Monocytes # 0.5 (0-1.0) k/uL Eosinophils # 0.2 (0-0.7) k/uL Basophils # 0.0 (0-0.2) k/uL PT (9.0-12.0) sec INR (<1.2) APTT (22.0-30.0) sec D-Dimer (<0.60) mg/L FEU Sodium 140 (137-145) mmol/L Potassium 3.3 L (3.5-5.1) mmol/L Chloride 98 (98-107) mmol/L Carbon Dioxide 24 (22-30) mmol/L Anion Gap 18 mmol/L BUN 14 (7-17) mg/dL Creatinine 0.90 (0.52-1.04) mg/dL Est GFR (CKD-EPI)AfAm 71 (>60 ml/min/1.73 sqM) Est GFR (CKD-EPI)NonAf 61 (>60 ml/min/1.73 sqM) Glucose 179 H (74-99) mg/dL Calcium 9.4 (8.4-10.2) mg/dL Magnesium 1.2 L (1.6-2.3) mg/dL Total Bilirubin 0.6 (0.2-1.3) mg/dL AST 58 H (14-36) U/L ALT 30 (9-52) U/L Alkaline Phosphatase 93 (38-126) U/L Total Creatine Kinase 234 H (30-135) U/L CK-MB (CK-2) 2.6 H* (0.0-2.4) ng/mL CK-MB (CK-2) Rel Index 1.1 Troponin I <0.012 (0.000-0.034) ng/mL NT-Pro-B Natriuret Pep pg/mL Total Protein 7.3 (6.3-8.2) g/dL Albumin 4.1 (3.5-5.0) g/dL 12/20/17 12/20/17 Range/Units 09:20 09:20 WBC (3.8-10.6) k/uL RBC (3.80-5.40) m/uL Hgb (11.4-16.0) gm/dL Hct (34.0-46.0) % MCV (80.0-100.0) fL MCH (25.0-35.0) pg MCHC (31.0-37.0) g/dL RDW (11.5-15.5) % Plt Count (150-450) k/uL Neutrophils % % Lymphocytes % % Monocytes % % Eosinophils % % Basophils % % Neutrophils # (1.3-7.7) k/uL Lymphocytes # (1.0-4.8) k/uL Monocytes # (0-1.0) k/uL Eosinophils # (0-0.7) k/uL Basophils # (0-0.2) k/uL PT 10.7 (9.0-12.0) sec INR 1.1 (<1.2) APTT 22.3 (22.0-30.0) sec D-Dimer 1.68 H (<0.60) mg/L FEU Sodium (137-145) mmol/L Potassium (3.5-5.1) mmol/L Chloride (98-107) mmol/L Carbon Dioxide (22-30) mmol/L Anion Gap mmol/L BUN (7-17) mg/dL Creatinine (0.52-1.04) mg/dL Est GFR (CKD-EPI)AfAm (>60 ml/min/1.73 sqM) Est GFR (CKD-EPI)NonAf (>60 ml/min/1.73 sqM) Glucose (74-99) mg/dL Calcium (8.4-10.2) mg/dL Magnesium (1.6-2.3) mg/dL Total Bilirubin (0.2-1.3) mg/dL AST (14-36) U/L ALT (9-52) U/L Alkaline Phosphatase (38-126) U/L Total Creatine Kinase (30-135) U/L CK-MB (CK-2) (0.0-2.4) ng/mL CK-MB (CK-2) Rel Index Troponin I (0.000-0.034) ng/mL NT-Pro-B Natriuret Pep 111 pg/mL Total Protein (6.3-8.2) g/dL Albumin (3.5-5.0) g/dL - Radiology Data Radiology results: report reviewed (Computed tomography scan the chest shows no pulmonary embolism. There is thoracic aortic aneurysm up to 4.4 cm.), image reviewed (Chest x-ray shows some cardiomegaly. There may be some vascular congestion.) Disposition Clinical Impression: Chest pain Disposition: ADMITTED IP TO THIS HOSP Is patient prescribed a controlled substance at d/c from ED?: No Referrals: Mariel Nix DO [Primary Care Provider] - 1-2 days Decision Time: 13:28
[2017-12-20 09:58] LABS: Basophils % (A) 0 %; Eosinophils # (A) 0.2 k/uL (0-0.7); Eosinophils % (A) 2 %; HCT 34.7 % (34.0-46.0); HGB 11.1 gm/dL (11.4-16.0); Lymphocytes # (A) 1.1 k/uL (1.0-4.8); Lymphocytes % (A) 9 %; MCH 28.9 pg (25.0-35.0); MCV 90.3 fL (80.0-100.0); Mean Platelet Volume 7.5; Monocytes # (A) 0.5 k/uL (0-1.0); Monocytes % (A) 4 %; Neutrophils # (A) 9.6 k/uL (1.3-7.7); Neutrophils % (A) 83 %; Platelet Count 201 k/uL (150-450); RBC 3.85 m/uL (3.80-5.40); RDW 15.2 % (11.5-15.5); WBC 11.5 k/uL (3.8-10.6)
[2017-12-20 10:08] LABS: Albumin 4.1 g/dL (3.5-5.0); Calcium 9.4 mg/dL (8.4-10.2); Magnesium 1.2 mg/dL (1.6-2.3); Potassium 3.3 mmol/L (3.5-5.1); Total Bilirubin 0.6 mg/dL (0.2-1.3); Total Protein 7.3 g/dL (6.3-8.2)
[2017-12-20 10:10] LABS: INR 1.1 (<1.2); Partial Thromboplastin Time 22.3 sec (22.0-30.0); Prothrombin Time 10.7 sec (9.0-12.0)
[2017-12-20 10:13] LABS: D-Dimer 1.68 mg/L FEU (<0.60)
[2017-12-20] MEDS ORDERED: methylPREDNISolone SOD SUCCI 125 MG/2 ML VIAL IV STA (10:14)
[2017-12-20] MEDS ORDERED: FAMOTIDINE 20 MG/2 ML VIAL IV STA (10:14)
[2017-12-20] MEDS ORDERED: diphenhydrAMINE 50 MG/ML 1 ML VIAL IVP STA (10:14)
[2017-12-20] MEDS ORDERED: MAGNESIUM SULFATE-D5W PMX 1 GM in DEXTROSE/WATER 1 100ML.BAG IVPB ONE (10:14)
[2017-12-20] MEDS ORDERED: MAGNESIUM OXIDE 400 MG TAB PO STA (10:15)
[2017-12-20] MEDS ORDERED: RX INFO: IV CONTRAST WAS GIVEN 1 EACH MISC MISCELLANE PRN (10:15)
[2017-12-20 10:38] LABS: Creatine Kinase 234 U/L (30-135)
[2017-12-20 10:52] LABS: Troponin I <0.012 ng/mL (0.000-0.034)
[2017-12-20 10:55] LABS: Creatine Kinase MB 2.6 ng/mL (0.0-2.4)
--- NOTE | 2017-12-20 11:52 | CT ---
EXAMINATION TYPE: CT angio chest DATE OF EXAM: 12/20/2017 11:48 AM COMPARISON: NONE HISTORY: Difficulty breathing CT DLP: 346.50 mGycm Automated exposure control for dose reduction was used. CONTRAST: CTA scan of the thorax is performed with IV Contrast, patient injected with 95 mL of Isovue 370, pulm onary embolism protocol. . FINDINGS: There is dependent atelectasis at the lung bases. There is been a previous right mastectomy. There is no significant axillary, internal mammary, mediastinal or hilar adenopathy. There is no pleu ral or pericardial fluid. The heart is enlarged. The root of the aorta is dilated measuring 4.4 cm. The proximal arch is aneurysmal measuring 3.7 cm. The proximal descending thoracic aorta is aneurysmal measuring 3.3 cm. At the level of the aortic hia tus, the aorta measures 2.9 cm. There is no evidence of pulmonary embolus. Within the abdomen, the gallbladder is been removed. Visualized upper abdominal structures are otherw ise unremarkable. There is hypertrophic spondylosis within the spine. IMPRESSION: 1. THIS EXAMINATION IS NEGATIVE FOR PULMONARY EMBOLUS. 2. THORACIC AORTIC ANEURYSM WITH MAXIMAL TRANSVERSE DIAMETER OF 4.4 CM. 3. DEGENERATIVE CHANGE WITHIN THE SPINE. 4. POSTSURGICAL CHANGE.
--- NOTE | 2017-12-20 12:43 | XR ---
EXAMINATION TYPE: XR chest 2V DATE OF EXAM: 12/20/2017 HISTORY: Chest Pain. REFERENCE: Previous study dated 03/22/2016. FINDINGS: There is a multilead pacing device in place in the left. Heart size is upper limits of normal. There is mild vascular congestion without zhen edema. Pleural spaces are clear. IMPRESSION: CARDIOMEGALY AND VASCULAR CONGESTION.
[2017-12-20] MEDS ORDERED: NITROGLYCERIN SL TABS 0.4 MG TAB SUBLINGUAL PRN (13:28)
[2017-12-20] MEDS: NITROGLYCERIN OINT 1 INCH/GM PACKET TOPICAL SCH ×2 (17:59→23:53)
[2017-12-20 18:50] LABS: Creatine Kinase 203 U/L (30-135)
[2017-12-20 18:59] LABS: Troponin I <0.012 ng/mL (0.000-0.034)
[2017-12-20 19:38] VITALS: BMI 30.2
[2017-12-20] MEDS ORDERED: SODIUM CHLORIDE 0.9% 1,000 ML IV SCH (20:00)
[2017-12-20] MEDS: risperiDONE 1 MG TAB PO SCH (21:59)
[2017-12-20] MEDS: traMADol 50 MG TAB PO SCH ×3 (21:59→23:56)
[2017-12-20] MEDS: LISINOPRIL 20 MG TAB PO SCH (21:59)
[2017-12-20] MEDS: CITALOPRAM HYDROBROMIDE 20 MG TAB PO SCH (21:59)
[2017-12-20] MEDS: ATORVASTATIN 10 MG TAB PO SCH (21:59)
[2017-12-20 22:30] LABS: Creatine Kinase 317 U/L (30-135)
[2017-12-20 22:44] LABS: Troponin I <0.012 ng/mL (0.000-0.034)
[2017-12-20 22:53] LABS: Creatine Kinase MB 5.7 ng/mL (0.0-2.4)
[2017-12-21 03:22] LABS: Cholesterol 129 mg/dL (<200); HDL Cholesterol 41 mg/dL (40-60); LDL Cholesterol,Calculated 67 mg/dL (0-99); Triglycerides 103 mg/dL (<150)
[2017-12-21] MEDS: NITROGLYCERIN OINT 1 INCH/GM PACKET TOPICAL SCH (04:48)
[2017-12-21 07:11] LABS: Glucose,Whole Blood 306 mg/dL (75-99)
[2017-12-21 07:37] LABS: Magnesium 1.9 mg/dL (1.6-2.3); Potassium 3.5 mmol/L (3.5-5.1)
[2017-12-21] MEDS ORDERED: ASPIRIN 325 MG TAB PO SCH (09:00)
[2017-12-21] MEDS: LISINOPRIL 20 MG TAB PO SCH ×2 (09:32→20:35)
[2017-12-21] MEDS: traMADol 50 MG TAB PO SCH ×2 (09:33→20:35)
[2017-12-21] MEDS: FUROSEMIDE 40 MG TAB PO SCH (09:34)
[2017-12-21] MEDS: Mirabegron [Myrbetriq] 50 MG PO SCH (09:34)
[2017-12-21] MEDS: ASPIRIN 81 MG PO SCH (09:34)
--- NOTE | 2017-12-21 10:01 | CONS ---
CONSULTATION Mrs. Billings is a 77-year-old female with no prior documented history of obstructive coronary artery disease who presented with chest discomfort. The discomfort woke her up from sleep and lasted throughout the day. Yesterday, came into the emergency room. At the time my evaluation, she is feeling well. The patient denies any prior history of myocardial infarction. She has been followed by Dr. Brownlee in the past. She has a history of congestive heart failure and a pacemaker implantation. According to her, she has underwent a myocardial perfusion imaging in September that revealed no evidence of inducible ischemia. She has history of chronic dyspnea on exertion. She has no PND or orthopnea. No peripheral edema. No history of syncope. She has no recent palpitation. She had no prior episode of chest discomfort. She is pain-free at the time of my evaluation. Her coronary risk factors are positive for hypertension, hyperlipidemia, and diet- controlled diabetes mellitus. MEDICATIONS: Include Ultram, Risperdal, simvastatin 10 mg daily, Myrbetriq, Metoprolol succinate 50 mg daily, Lasix 40 mg daily, Vasotec 10 mg twice a day, citalopram and aspirin. REVIEW OF SYSTEMS: Respiratory system: She has dyspnea on exertion. No recent wheezing or cough. GI system: She had a prior history of hiatal hernia. Prior bleeding resolved. system: No dysuria or hematuria. Nervous system: No stroke or seizure. PHYSICAL EXAMINATION: 77-year-old female, alert, oriented, no apparent distress. Blood pressure 141/70 with a heart in 90s. HEAD: Normocephalic. Eyes sclerae anicteric. Neck good carotid upstroke. No bruit. No jugular venous distention. LUNGS: Clear to auscultation. HEART: Regular rate and rhythm S1, S2. No S3 with systolic murmur at the base. No diastolic murmur. No rub. ABDOMEN: Soft, nontender. Positive bowel sounds. No megaly. EXTREMITIES: No edema. Intact distal pulses. LAB DATA: Lab data revealed troponin less than 0.012 for 3 samples. NT proBNP of 111, cholesterol 129, LDL of 67, BUN and creatinine 19 and 0.83, potassium 3.5, hemoglobin of 11.1. D-dimer of 1.68. EKG revealed a sinus mechanism with 100% ventricular pacing. CT angiogram of the chest revealed no evidence of pulmonary embolism with a thoracic aortic aneurysm size of 4.4 cm. IMPRESSION: 1. Chest discomfort, atypical for ischemic heart disease. Probably noncardiac. 2. Status post permanent pacemaker implantation with no evidence of pacemaker malfunction. 3. Hypertension. 4. Hyperlipidemia. 5. Diet controlled diabetes mellitus. RECOMMENDATION: From the cardiac standpoint, I see no evidence of acute coronary syndrome. The patient had a myocardial perfusion imaging recently that was unremarkable. I will continue present therapy. Increase her level of activity. If she is stable, I would expect she should be able to be discharged home and follow up as an outpatient with Dr. Brownlee. Thank you for this consult. We will follow with you. MMBERTOL / IJN: [id number] /
[2017-12-21 12:07] LABS: Glucose,Whole Blood 291 mg/dL (75-99)
[2017-12-21 12:18] VITALS: RESP 16
[2017-12-21] MEDS: INSULIN ASPART 100 UNIT/ML 1 ML 10 ML VIAL SQ SCH ×4 (13:36→20:41)
[2017-12-21] MEDS ORDERED: ALLOPURINOL 300 MG TAB PO SCH (15:00)
[2017-12-21] MEDS ORDERED: METOPROLOL SUCCINATE (ER) 50 MG TAB.ER.24H PO SCH (15:00)
[2017-12-21 17:02] LABS: Glucose,Whole Blood 239 mg/dL (75-99)
--- NOTE | 2017-12-21 17:23 | P.HPIM ---
History of Present Illness H&P Date: 12/21/17 Patient is a 77-year-old female who presented to [facility] emergency room with a chief complaint of chest pain patient describes pain in the left side of her chest radiating up to the neck that started when she woke up on Friday morning and lasted all day on Friday patient came to the emergency room she was evaluated EKG and first set of cardiac enzymes were negative she was admitted to observation unit for further evaluation cardiology consultation was requested. Patient had some shortness of breath with her chest pain but no nausea or vomiting and no diaphoresis. Patient has known history of breast cancer she also has known history of diabetes she was maintained on insulin and metformin in the past however she has not been taking any medications recently she states that she has a history of congestive heart failure and history of a pacemaker placement. Today patient is alert and oriented in no apparent distress there is no chest pain her chest pain resolved last night there is no shortness of breath at rest no cough no nausea or vomiting no abdominal pain no burning with urination no frequency or urgency and no hematuria Past Medical History Past Medical History: Cancer, Heart Failure, CVA/TIA, Diabetes Mellitus, GERD/ Reflux, Hypertension, Rheumatoid Arthritis (RA) Additional Past Medical History / Comment(s): gout, urinary incontinence pacemaker, breast cancer 2009 ,DIABETES -diet control., PROBLEMS WITH CONSTIPATION AND DIARRHEA- , ANEMIA. hx migraines, TIA 20 yrs ago, heart murmer , hiatal hernia, diverticulitis, History of Any Multi-Drug Resistant Organisms: None Reported Past Surgical History: Back Surgery, Bladder Surgery, Breast Surgery, Cholecystectomy, Joint Replacement, Orthopedic Surgery, Pacemaker, Tonsillectomy Additional Past Surgical History / Comment(s): right hip replacement, right shoulder surgery., right mastectomy, surgery for ectopic , spinal fusion, pacemaker, Bladder pacemaker for urine incontinence. philip fundoplication Past Anesthesia/Blood Transfusion Reactions: Previous Problems w/ Anesthesia, Postoperative Nausea & Vomiting (PONV) Additional Past Anesthesia/Blood Transfusion Reaction / Comment(s): stopped breathing after D & C. Very Dizzy pacemaker surgery Type of Cardiac Device: Permanent Pacemaker Device Placement Date:: 03/21/2016 Past Psychological History: Anxiety, Depression, PTSD Smoking Status: Former smoker Past Alcohol Use History: None Reported Additional Past Alcohol Use History / Comment(s): quit smoking 2005. smoked approx 20 yrs, 1 PPD. Past Drug Use History: None Reported - Past Family History Sister(s) Family Medical History: Cancer Additional Family Medical History / Comment(s): breast cancer Mother Family Medical History: CVA/TIA Additional Family Medical History / Comment(s): stroke at age 55 Father Family Medical History: Dementia, Myocardial Infarction ([place]) Additional Family Medical History / Comment(s): lived to be almost 100 Medications and Allergies Home Medications Medication Instructions Recorded Confirmed Type Allopurinol [Zyloprim] 300 mg PO DAILY@1500 01/22/16 12/20/17 History Citalopram Hydrobromide 40 mg PO HS 01/22/16 12/20/17 History [Citalopram HBr] Enalapril [Vasotec] 10 mg PO BID 01/22/16 12/20/17 History Simvastatin [Zocor] 10 mg PO HS 01/22/16 12/20/17 History risperiDONE [RisperDAL] 1 mg PO HS 01/22/16 12/20/17 History traMADol HCL [Ultram] 50 mg PO BID 03/19/16 12/20/17 History Aspirin [Adult Low Dose Aspirin EC] 81 mg PO DAILY 03/11/17 12/20/17 History Mirabegron [Myrbetriq] 50 mg PO DAILY 03/11/17 12/20/17 History Ciprofloxacin HCl [Cipro] 500 mg PO BID 12/20/17 12/20/17 History Furosemide [Lasix] 40 mg PO DAILY 12/20/17 12/20/17 History Metoprolol Succinate (ER) [Toprol 50 mg PO DAILY@1500 12/20/17 12/20/17 History Xl] Allergies Allergy/AdvReac Type Severity Reaction Status Date / Time Iodine and Iodide Containing Allergy Mild Rash/Hives Verified 12/20/17 13:55 Produc Sulfa (Sulfonamide Allergy Rash/Hives Verified 12/20/17 13:55 Antibiotics) morphine AdvReac Severe Nausea & Verified 12/20/17 13:55 Vomiting scopolamine AdvReac Unknown Confusion, Verified 12/20/17 13:55 Aggressive, hitting. codeine AdvReac Nausea & Verified 12/20/17 13:55 Vomiting Physical Exam Vitals: Vital Signs Temp Pulse Pulse Resp BP BP Pulse Ox 12/21/17 16:00 97.6 F 89 16 144/72 95 12/21/17 12:00 97.9 F 83 16 118/64 94 L 12/21/17 08:00 98.5 F 86 18 130/68 94 L 12/21/17 04:00 98.0 F 90 20 141/70 94 L 12/21/17 00:00 97.6 F 93 16 157/90 92 L 12/20/17 20:00 97.6 F 84 18 154/79 96 12/20/17 19:46 97.6 F 85 16 162/80 12/20/17 19:09 98 F 86 18 152/78 97 12/20/17 18:00 87 18 148/77 97 Intake and Output 12/21/17 12/21/17 12/21/17 06:59 14:59 22:59 Other: Voiding Method Toilet Diaper Diaper Diaper Incontinent Incontinent # Voids 2 HEENT head normocephalic and atraumatic Neck is supple no JVD no goiter no lymphadenopathy Chest exam reveals a few scattered crackles no wheezing Cardiac exam reveals regular heart sounds S1 and S2 no gallops no murmurs Abdomen is soft nontender no organomegaly with normal bowel sounds Extremity exam reveals no edema no cyanosis or clubbing Neurological examination reveals no gross focal deficit Results CBC & Chem 7: 12/20/17 09:20 12/21/17 06:30 Labs: Abnormal Lab Results - Last 24 Hours (Table) 12/20/17 12/20/17 12/21/17 Range/Units 17:40 21:04 06:30 Sodium 136 L (137-145) mmol/L BUN 19 H (7-17) mg/dL Glucose 322 H (74-99) mg/dL POC Glucose (mg/dL) (75-99) mg/dL Total Creatine Kinase 203 H 317 H (30-135) U/L CK-MB (CK-2) 5.7 H* (0.0-2.4) ng/mL 12/21/17 12/21/17 12/21/17 Range/Units 07:06 11:55 16:59 Sodium (137-145) mmol/L BUN (7-17) mg/dL Glucose (74-99) mg/dL POC Glucose (mg/dL) 306 H 291 H 239 H (75-99) mg/dL Total Creatine Kinase (30-135) U/L CK-MB (CK-2) (0.0-2.4) ng/mL Thrombosis Risk Factor Assmnt - Choose All That Apply Each Risk Factor Represents 3 Points: Age 75 years or older Thrombosis Risk Factor Assessment Total Risk Factor Score: 3 Thrombosis Risk Factor Assessment Level: Moderate Risk Assessment and Plan Plan: #1 episode of chest pain serial EKG and cardiac enzymes were ordered cardiology consultation requested #2 diabetes mellitus patient was on insulin and on metformin in the past she has not been taking any medications or insulin recently check hemoglobin A1c and assess need for medication glucose is elevated during this admission is being covered with sliding scale #3 underlying history of rheumatoid arthritis patient is having some gait disturbance and would benefit of having a walker #4 underlying history of congestive heart failure echocardiogram was ordered #5 underlying history of gout maintained on Zyloprim #6 underlying history of hyperlipidemia maintained on Lipitor 10 mg daily continue #7 underlying history of depression maintained on Celexa continue Will follow during this admission for medical management Will check echocardiogram hemoglobin A1c and lipid profile Will follow in a.m.
[2017-12-21 20:35] LABS: Glucose,Whole Blood 237 mg/dL (75-99)
[2017-12-21] MEDS: risperiDONE 1 MG TAB PO SCH (20:35)
[2017-12-21] MEDS: CITALOPRAM HYDROBROMIDE 20 MG TAB PO SCH (20:35)
[2017-12-21] MEDS: ATORVASTATIN 10 MG TAB PO SCH (20:35)
[2017-12-21 20:55] LABS: Hemoglobin A1C 8.5 % (4.0-6.0)
[2017-12-22 07:04] LABS: Glucose,Whole Blood 133 mg/dL (75-99)
[2017-12-22] MEDS: LISINOPRIL 20 MG TAB PO SCH (08:16)
[2017-12-22] MEDS: traMADol 50 MG TAB PO SCH (08:16)
[2017-12-22] MEDS: FUROSEMIDE 40 MG TAB PO SCH (08:16)
[2017-12-22] MEDS: ASPIRIN 81 MG PO SCH (08:17)
[2017-12-22] MEDS: INSULIN ASPART 100 UNIT/ML 1 ML 10 ML VIAL SQ SCH ×2 (08:19→12:42)
[2017-12-22] MEDS: Mirabegron [Myrbetriq] 50 MG PO SCH (08:29)
[2017-12-22 08:38] VITALS: TEMP 98.4
[2017-12-22 10:44] VITALS: BP 143/82; PULSE 80
--- NOTE | 2017-12-22 10:46 | P.PN ---
Subjective Progress Note Date: 12/22/17 Mrs. Billnigs is seen today in follow-up from initial consultation. She is resting comfortably in bed in no acute distress. She has been up and down to the bathroom with assistance and denies any further symptoms of chest pain. She does continue with chronic shortness of breath on exertion which is not any worse than her baseline. Telemetry tracings have been unremarkable. Office records reviewed reveal she underwent a normal Lexiscan stress test in April 2017 and had an echocardiogram September 2017 that revealed mildly decreased systolic function with EF 45-50%, mild AR and mild MR. Blood pressure 180/97 heart rate 85 afebrile maintaining oxygen saturation on 2 L nasal cannula. Objective - Vital Signs Vital signs: Vital Signs Temp 98.4 F 12/22/17 08:00 Pulse 85 12/22/17 08:00 Resp 16 12/22/17 08:00 BP 180/97 12/22/17 08:00 Pulse Ox 94 L 12/22/17 08:00 Intake & Output 12/21/17 12/22/17 12/22/17 18:59 06:59 18:59 Weight 72.575 kg Other: Voiding Method Diaper Diaper Diaper Incontinent Incontinent Incontinent # Voids 2 - Exam GENERAL: Well-appearing, well-nourished and in no acute distress. NECK: Supple without JVD or thyromegaly. LUNGS: Breath sounds clear to auscultation bilaterally. Respiration equal and unlabored. No wheezes, rales or rhonchi. HEART: Regular rate and rhythm with systolic murmur at the base, rubs or gallops. S1 and S2 heard. EXTREMITIES: Normal range of motion, no edema. No clubbing or cyanosis. Peripheral pulses intact and strong. - Labs CBC & Chem 7: 12/20/17 09:20 12/21/17 06:30 Labs: Abnormal Lab Results - Last 24 Hours (Table) 12/20/17 12/21/17 12/21/17 Range/Units 09:20 11:55 16:59 POC Glucose (mg/dL) 291 H 239 H (75-99) mg/dL Hemoglobin A1c 8.5 H (4.0-6.0) % 12/21/17 12/22/17 Range/Units 20:34 07:02 POC Glucose (mg/dL) 237 H 133 H (75-99) mg/dL Hemoglobin A1c (4.0-6.0) % Assessment and Plan Assessment: ASSESSMENT 1. Chest pain, atypical. An acute coronary event was ruled out. 2. s/p permanent pacemaker implantation 3. Hypertension 4. Hyperlipidemia 5. Diabetes mellitus PLAN Recent echocardiogram from the office has been reviewed and does not need to be repeated. A copy has been placed in the chart. Stable from a cardiac perspective. Follow-up with Dr. Brownlee in 2 weeks. The above impression and plan of care have been discussed and directed by the signing physician. Khloe Grey, nurse practitioner, acting as scribe for signing physician.
[2017-12-22 12:32] LABS: Glucose,Whole Blood 147 mg/dL (75-99)
--- NOTE | 2017-12-22 13:16 | P.DS ---
Providers Date of admission: 12/20/17 13:28 Expected date of discharge: 12/22/17 Attending physician: Yvrose Hurley Consults: 12/20/17 13:28 Consult Physician Urgent Consulting Provider: Rigoberto Brownlee Consult Reason/Comments: cp, aortic anneurysm Do you want consulting provider notified?: Yes Primary care physician: Mariel Nix Hospital Course: #1 episode of chest pain: Atypical in nature. 12-lead EKG showed no acute ischemic changes. Troponin was negative. CT angiogram was negative for PE. Patient was seen and evaluated by cardiology. No further testing was recommended. Patient has recently had a myocardial perfusion imaging that was unremarkable. Patient was cleared for discharge home. #2 diabetes mellitus not well controlled. A1c 8.5. Patient was recently taken off her diabetes medications. I would resume her metformin and start her on glipizide #3 underlying history of rheumatoid arthritis patient is having some gait disturbance and would benefit of having a walker. Plan to follow-up with PCP #5 underlying history of gout maintained on Zyloprim #6 underlying history of hyperlipidemia maintained on Lipitor 10 mg daily continue #7 underlying history of depression maintained on Celexa continue Plan - Discharge Summary Discharge Rx Participant: No New Discharge Prescriptions: New glipiZIDE [Glucotrol] 5 mg PO AC-BID #60 tab metFORMIN HCL [Glucophage] 500 mg PO BID #60 tab Continue Allopurinol [Zyloprim] 300 mg PO DAILY@1500 Citalopram Hydrobromide [Citalopram HBr] 40 mg PO HS Enalapril [Vasotec] 10 mg PO BID risperiDONE [RisperDAL] 1 mg PO HS Simvastatin [Zocor] 10 mg PO HS traMADol HCL [Ultram] 50 mg PO BID Mirabegron [Myrbetriq] 50 mg PO DAILY Aspirin [Adult Low Dose Aspirin EC] 81 mg PO DAILY Ciprofloxacin HCl [Cipro] 500 mg PO BID Furosemide [Lasix] 40 mg PO DAILY Metoprolol Succinate (ER) [Toprol XL] 50 mg PO DAILY@1500 Discharge Medication List Allopurinol [Zyloprim] 300 mg PO DAILY@1500 01/22/16 [History] Citalopram Hydrobromide [Citalopram HBr] 40 mg PO HS 01/22/16 [History] Enalapril [Vasotec] 10 mg PO BID 05/23/16 [History] Simvastatin [Zocor] 10 mg PO HS 01/22/16 [History] risperiDONE [RisperDAL] 1 mg PO HS 01/22/16 [History] traMADol HCL [Ultram] 50 mg PO BID 03/19/16 [History] Aspirin [Adult Low Dose Aspirin EC] 81 mg PO DAILY 03/11/17 [History] Mirabegron [Myrbetriq] 50 mg PO DAILY 03/11/17 [History] Ciprofloxacin HCl [Cipro] 500 mg PO BID 12/20/17 [History] Furosemide [Lasix] 40 mg PO DAILY 12/20/17 [History] Metoprolol Succinate (ER) [Toprol XL] 50 mg PO DAILY@1500 12/20/17 [History] glipiZIDE [Glucotrol] 5 mg PO AC-BID #60 tab 12/22/17 [Rx] metFORMIN HCL [Glucophage] 500 mg PO BID #60 tab 12/22/17 [Rx] Follow up Appointment(s)/Referral(s): Mariel Nix DO [Primary Care Provider] - 1-2 days Rigoberto Brownlee MD [STAFF PHYSICIAN] - 1 Week
== END 2017-12-22 15:00 | disposition home or self-care (01) ==
LOC: EC 09:04 → 6SEL 13:28 → 3OBS 17:19 → 3SUR 18:52 → 3OBS 12-21 19:06
PROVIDERS: ADMIT Internal Medicine; ATTEND Internal Medicine
DX: R07.89 Other chest pain (principal); M06.9 Rheumatoid arthritis, unspecified; K21.9 Gastro-esophageal reflux disease without esophagitis; I11.0 Hypertensive heart disease with heart failure; I50.9 Heart failure, unspecified; M10.9 Gout, unspecified; G43.909 Migraine, unspecified, not intractable, without status migrainosus; E11.9 Type 2 diabetes mellitus without complications; D64.9 Anemia, unspecified; F43.10 Post-traumatic stress disorder, unspecified; F32.9 Major depressive disorder, single episode, unspecified; F41.9 Anxiety disorder, unspecified; Z79.82 Long term (current) use of aspirin; Z79.899 Other long term (current) drug therapy; Z88.5 Allergy status to narcotic agent; Z88.2 Allergy status to sulfonamides; Z88.8 Allergy status to other drugs, medicaments and biological substances; Z91.041 Radiographic dye allergy status; Z85.3 Personal history of malignant neoplasm of breast; Z96.641 Presence of right artificial hip joint; Z90.11 Acquired absence of right breast and nipple; Z87.891 Personal history of nicotine dependence; Z96.0 Presence of urogenital implants; Z82.49 Family history of ischemic heart disease and other diseases of the circulatory system; Z82.3 Family history of stroke; Z86.73 Personal history of transient ischemic attack (TIA), and cerebral infarction without residual deficits; E78.5 Hyperlipidemia, unspecified; Z95.0 Presence of cardiac pacemaker
CPT/HCPCS: 96365 ×4; 99291 ×2; 96375; 36415; 93005; 85379; 83880; 80061; 80053; 80048; 82550; 82553; 83735 ×2; 84484; 85025; 85610; 85730; 83036; 71046; 71275; G0378 ×4; J1200; J2930; J3475; Q9967

== ENCOUNTER 2017-12-27 21:18 | Observation (INO) | payer OTHER ==
[2017-12-27] MEDS ORDERED: NITROGLYCERIN SL TABS 0.4 MG TAB SUBLINGUAL STA (21:52)
[2017-12-27] MEDS ORDERED: SODIUM CHLORIDE 0.9% 1,000 ML IV STA (21:52)
[2017-12-27] MEDS ORDERED: ONDANSETRON 4 MG/2 ML VIAL IVP STA (21:52)
[2017-12-27] MEDS ORDERED: fentaNYL (PF) 50 MCG/ML 2 ML AMP IV PRN (21:58)
[2017-12-27 22:06] LABS: Basophils # (A) 0.1 k/uL (0-0.2); Basophils % (A) 1 %; Eosinophils # (A) 0.3 k/uL (0-0.7); Eosinophils % (A) 4 %; HCT 36.4 % (34.0-46.0); HGB 11.6 gm/dL (11.4-16.0); Lymphocytes # (A) 1.8 k/uL (1.0-4.8); Lymphocytes % (A) 20 %; MCH 28.6 pg (25.0-35.0); MCHC 31.8 g/dL (31.0-37.0); MCV 89.9 fL (80.0-100.0); Mean Platelet Volume 7.2; Monocytes # (A) 0.6 k/uL (0-1.0); Monocytes % (A) 6 %; Neutrophils % (A) 68 %; Platelet Count 246 k/uL (150-450); RBC 4.05 m/uL (3.80-5.40); RDW 15.2 % (11.5-15.5); WBC 8.9 k/uL (3.8-10.6)
[2017-12-27 22:15] LABS: Albumin 4.1 g/dL (3.5-5.0); Calcium 9.6 mg/dL (8.4-10.2); Magnesium 1.2 mg/dL (1.6-2.3); Potassium 3.9 mmol/L (3.5-5.1); Total Bilirubin 0.5 mg/dL (0.2-1.3); Total Protein 7.2 g/dL (6.3-8.2)
[2017-12-27 22:19] LABS: Creatine Kinase 330 U/L (30-135)
--- NOTE | 2017-12-27 22:25 | XR ---
EXAMINATION TYPE: XR chest 2V DATE OF EXAM: 12/27/2017 COMPARISON: 12/20/2017 HISTORY: Chest pain TECHNIQUE: Frontal and lateral views of the chest are obtained. FINDINGS: There is no heart failure nor confluent pneumonic infiltrate. Thoracic aorta is atheromato us. There is left axillary pacemaker with the lead tips in the right ventricle. There is no pleural e ffusion. Bony thorax appears intact. IMPRESSION: No active cardiopulmonary disease. No change.
[2017-12-27 22:31] LABS: INR 1.1 (<1.2)
[2017-12-27 22:32] LABS: Creatine Kinase MB 1.3 ng/mL (0.0-2.4); Prothrombin Time 10.5 sec (9.0-12.0); Troponin I <0.012 ng/mL (0.000-0.034)
[2017-12-27 22:38] LABS: D-Dimer 3.19 mg/L FEU (<0.60); Partial Thromboplastin Time 21.8 sec (22.0-30.0)
--- NOTE | 2017-12-28 00:26 | ED ---
Chest Pain HPI - General Chief Complaint: Chest Pain Stated Complaint: Chest pain Time Seen by Provider: 12/27/17 21:36 Source: patient Mode of arrival: wheelchair Limitations: no limitations - History of Present Illness Initial Comments: 77 years old female comes in with the chest pain she felt 5 PM today she bumped her chest and she denies hitting her head she denies any loss of consciousness was slurred for which she had this pain ongoing in the left side of the chest it gets worse with deep breaths. She does have a history of for coronary artery disease she had a first pacemaker for about 10 years now she is on a second pacemaker and has shortness of breath he and now pain gets worse with deep breaths. Denies any abdominal pain no frequency urgency dysuria no symptoms of TIA or CVA - Related Data Home Medications Medication Instructions Recorded Confirmed Allopurinol [Zyloprim] 300 mg PO DAILY@1500 01/22/16 12/20/17 Citalopram Hydrobromide 40 mg PO HS 01/22/16 12/20/17 [Citalopram HBr] Enalapril [Vasotec] 10 mg PO BID 01/22/16 12/20/17 Simvastatin [Zocor] 10 mg PO HS 01/22/16 12/20/17 risperiDONE [RisperDAL] 1 mg PO HS 01/22/16 12/20/17 traMADol HCL [Ultram] 50 mg PO BID 03/19/16 12/20/17 Aspirin [Adult Low Dose Aspirin EC] 81 mg PO DAILY 03/11/17 12/20/17 Mirabegron [Myrbetriq] 50 mg PO DAILY 03/11/17 12/20/17 Ciprofloxacin HCl [Cipro] 500 mg PO BID 12/20/17 12/20/17 Furosemide [Lasix] 40 mg PO DAILY 12/20/17 12/20/17 Metoprolol Succinate (ER) [Toprol 50 mg PO DAILY@1500 12/20/17 12/20/17 XL] Previous Rx's Medication Instructions Recorded glipiZIDE [Glucotrol] 5 mg PO AC-BID #60 tab 12/22/17 metFORMIN HCL [Glucophage] 500 mg PO BID #60 tab 12/22/17 Allergies Allergy/AdvReac Type Severity Reaction Status Date / Time Iodine and Iodide Containing Allergy Mild Rash/Hives Verified 12/27/17 21:24 Produc Sulfa (Sulfonamide Allergy Rash/Hives Verified 12/27/17 21:24 Antibiotics) morphine AdvReac Severe Nausea & Verified 12/27/17 21:24 Vomiting scopolamine AdvReac Unknown Confusion, Verified 12/27/17 21:24 Aggressive, hitting. codeine AdvReac Nausea & Verified 12/27/17 21:24 Vomiting Review of Systems ROS Statement: Those systems with pertinent positive or pertinent negative responses have been documented in the HPI. ROS Other: All systems not noted in ROS Statement are negative. EKG Findings - EKG Comments: EKG Findings:: EKG is paced EKG ventricular rate is 78 PA interval is 126 QRS duration is 156 QT/QTc is 484/551 Past Medical History Past Medical History: Cancer, Heart Failure, CVA/TIA, Diabetes Mellitus, GERD/ Reflux, Hypertension, Rheumatoid Arthritis (RA) Additional Past Medical History / Comment(s): gout, urinary incontinence pacemaker, breast cancer 2009 ,DIABETES -diet control., PROBLEMS WITH CONSTIPATION AND DIARRHEA- , ANEMIA. hx migraines, TIA 20 yrs ago, heart murmer , hiatal hernia, diverticulitis, History of Any Multi-Drug Resistant Organisms: None Reported Past Surgical History: Back Surgery, Bladder Surgery, Breast Surgery, Cholecystectomy, Joint Replacement, Orthopedic Surgery, Pacemaker, Tonsillectomy Additional Past Surgical History / Comment(s): right hip replacement, right shoulder surgery., right mastectomy, surgery for ectopic , spinal fusion, pacemaker, Bladder pacemaker for urine incontinence. philip fundoplication Past Anesthesia/Blood Transfusion Reactions: Previous Problems w/ Anesthesia, Postoperative Nausea & Vomiting (PONV) Additional Past Anesthesia/Blood Transfusion Reaction / Comment(s): stopped breathing after D & C. Very Dizzy pacemaker surgery Type of Cardiac Device: Permanent Pacemaker Device Placement Date:: 03/21/2016 Past Psychological History: Anxiety, Depression, PTSD Smoking Status: Former smoker Past Alcohol Use History: None Reported Past Drug Use History: None Reported - Past Family History Sister(s) Family Medical History: Cancer Additional Family Medical History / Comment(s): breast cancer Mother Family Medical History: CVA/TIA Additional Family Medical History / Comment(s): stroke at age 55 Father Family Medical History: Dementia, Myocardial Infarction ([place]) Additional Family Medical History / Comment(s): lived to be almost 100 General Exam - General Exam Comments Initial Comments: General: The patient is awake and alert, in no distress, and does not appear acutely ill. Skin: Skin is warm and dry and no rashes or lesions are noted. Notice large scar in the left side of the skin over the pacemaker Eye: Pupils are equal, round and reactive to light, extra-ocular movements are intact; there is normal conjunctiva bilaterally. Ears, nose, mouth and throat: There are moist mucous membranes and no oral lesions. Neck: The neck is supple, there is no tenderness or JVD. Cardiovascular: There is a regular rate and rhythm. No murmur, rub or gallop is appreciated. Respiratory: To auscultation bilateral, decreased breath sounds bilateral Gastrointestinal: Soft, non-distended, non-tender abdomen without masses or organomegaly noted. There is no rebound or guarding present. Bowel sounds are unremarkable. Back: There is no tenderness to palpation in the midline. There is no obvious deformity. Musculoskeletal: Normal ROM, no tenderness, There is no pedal edema. There is no calf tenderness or swelling. No cords were appreciated. Neurological: CN II-XII intact, Cranial nerves III through XII are intact. There are no obvious motor or sensory deficits. Coordination appears grossly intact. Speech is normal. Psychiatric: Cooperative, appropriate mood & affect, normal judgment. Limitations: no limitations Course Vital Signs 12/27/17 21:21 Temperature 98.2 F Pulse Rate 83 Respiratory 18 Rate Blood Pressure 179/86 O2 Sat by Pulse 97 Oximetry Critical Care Time Total Critical Care Time: 30 Critical Care Time: 77 years old female with a history of ischemic heart disease and pacemaker in place 100 with the chest pain she has a history of for about 10 years ago she is on her second pacemaker troponin was negative EKG was paced d-dimer is quite elevated 3.1 She is not a candidate for CT angiogram considering her creatinine is high as well as she is ALLERGIC to iodine. We proceeded with a VQ scan VQ scan ruled out any pulmonary embolism but she still continued to have a pain will admit her to the hospital will consult cardiology Disposition Clinical Impression: Chest pain Disposition: ADMITTED IP TO THIS HOSP Condition: Good Referrals: Mariel Nix DO [Primary Care Provider] - 1-2 days
--- NOTE | 2017-12-28 00:46 | NM ---
EXAMINATION TYPE: NM pul vent and perfuse DATE OF EXAM: 12/28/2017 COMPARISON: NONE HISTORY: TECHNIQUE: Utilizing inhalation of 63.6 mCi Tc 99m DTPA aerosol and intravenous injection of 4.71 mC i of Tc 99m MAA, ventilation and perfusion images are acquired post injection in multiple projections . FINDINGS: There are matching subsegmental defects in the left lower lobe. There is no ventilation/perfusion mis match. The chest x-ray today shows no pulmonary consolidation. IMPRESSION: Matching subsegmental defects in the left lower lobe. There is a low probability of pulmonary embolis m.
[2017-12-28] MEDS ORDERED: NITROGLYCERIN SL TABS 0.4 MG TAB SUBLINGUAL PRN (01:02)
[2017-12-28] MEDS: ACETAMINOPHEN TAB 325 MG TAB PO PRN ×3 (02:26→21:22)
[2017-12-28 04:15] LABS: Creatine Kinase 262 U/L (30-135)
[2017-12-28 04:28] LABS: Creatine Kinase MB 1.2 ng/mL (0.0-2.4); Troponin I <0.012 ng/mL (0.000-0.034)
[2017-12-28 05:08] VITALS: BMI 28.3
[2017-12-28] MEDS ORDERED: LISINOPRIL 10 MG TAB PO SCH (09:00)
--- NOTE | 2017-12-28 10:03 | P.CRDCN ---
History of Present Illness Consult date: 12/28/17 Requesting physician: Richard Levy Consult reason: chest pain Chief complaint: Chest pain History of present illness: This is a pleasant 77-year-old female who follows regularly with Dr. Brownlee in the office. She has no prior documented history of obstructive coronary artery disease, has history of hypertension, hyperlipidemia, prior pacemaker implantation, diet-controlled diabetes, thoracic aortic aneurysm, measuring 4.4 cm, she was recently in the hospital approximately one week ago with symptoms of chest discomfort which was felt to be atypical. She did undergo a myocardial perfusion imaging in September which revealed no evidence of reversible ischemia. Patient presents to the hospital on this occasion after experiencing a fall. She states that she was going to a restaurant, she tripped over a step and fell to the ground. She did hit the left side of her chest upon falling and hit her ankle as well. Patient states shortly thereafter if she would move her upper body or take a deep breath she had considerable chest pain and for this reason she came to the emergency room for further evaluation. Patient did not pass out on falling. EKG on arrival here showed a ventricular paced rhythm. A VQ scan was also performed on admission here which was low probability for PE. Chest x-ray did not reveal any active cardiopulmonary disease. CBC is normal, d-dimer 3.1, sodium 142, potassium 3.9 , BUN 15, creatinine 1.1. Magnesium level I.2 troponins negative 2. Blood pressure 105/56 with a heart rate in the 70s. Past Medical History Past Medical History: Cancer, Heart Failure, CVA/TIA, Diabetes Mellitus, GERD/ Reflux, Hypertension, Rheumatoid Arthritis (RA) Additional Past Medical History / Comment(s): gout, urinary incontinence pacemaker, breast cancer 2009 ,DIABETES -diet control., PROBLEMS WITH CONSTIPATION AND DIARRHEA- , ANEMIA. hx migraines, TIA 20 yrs ago, heart murmer , hiatal hernia, diverticulitis, History of Any Multi-Drug Resistant Organisms: None Reported Past Surgical History: Back Surgery, Bladder Surgery, Breast Surgery, Cholecystectomy, Joint Replacement, Orthopedic Surgery, Pacemaker, Tonsillectomy Additional Past Surgical History / Comment(s): right hip replacement, right shoulder surgery., right mastectomy, surgery for ectopic , spinal fusion, pacemaker, Bladder pacemaker for urine incontinence. philip fundoplication Past Anesthesia/Blood Transfusion Reactions: Previous Problems w/ Anesthesia, Postoperative Nausea & Vomiting (PONV) Additional Past Anesthesia/Blood Transfusion Reaction / Comment(s): stopped breathing after D & C Type of Cardiac Device: Permanent Pacemaker Device Placement Date:: 03/21/2016 Past Psychological History: Anxiety, Depression, PTSD Additional Psychological History / Comment(s): . Smoking Status: Former smoker Past Alcohol Use History: None Reported Additional Past Alcohol Use History / Comment(s): quit smoking 2005. smoked approx 20 yrs, 1 PPD. Past Drug Use History: None Reported - Past Family History Sister(s) Family Medical History: Cancer Additional Family Medical History / Comment(s): breast cancer Mother Family Medical History: CVA/TIA Additional Family Medical History / Comment(s): stroke at age 55 Father Family Medical History: Dementia, Myocardial Infarction ([place]) Additional Family Medical History / Comment(s): lived to be almost 100 Medications and Allergies Home Medications Medication Instructions Recorded Confirmed Type Allopurinol [Zyloprim] 300 mg PO DAILY@1500 01/22/16 12/28/17 History Citalopram Hydrobromide 40 mg PO HS 01/22/16 12/28/17 History [Citalopram HBr] Enalapril [Vasotec] 10 mg PO BID 01/22/16 12/28/17 History Simvastatin [Zocor] 10 mg PO HS 01/22/16 12/28/17 History risperiDONE [RisperDAL] 1 mg PO HS 01/22/16 12/28/17 History traMADol HCL [Ultram] 50 mg PO BID 03/19/16 12/28/17 History Aspirin [Adult Low Dose Aspirin EC] 81 mg PO DAILY 03/11/17 12/28/17 History Mirabegron [Myrbetriq] 50 mg PO DAILY 03/11/17 12/28/17 History Ciprofloxacin HCl [Cipro] 500 mg PO BID 12/20/17 12/28/17 History Furosemide [Lasix] 40 mg PO DAILY 12/20/17 12/28/17 History Metoprolol Succinate (ER) [Toprol 50 mg PO DAILY@1500 12/20/17 12/28/17 History XL] glipiZIDE [Glucotrol] 5 mg PO AC-BID #60 tab 12/22/17 12/28/17 Rx metFORMIN HCL [Glucophage] 500 mg PO BID #60 tab 12/22/17 12/28/17 Rx Allergies Allergy/AdvReac Type Severity Reaction Status Date / Time Iodine and Iodide Containing Allergy Mild Rash/Hives Verified 12/27/17 21:24 Produc Sulfa (Sulfonamide Allergy Rash/Hives Verified 12/27/17 21:24 Antibiotics) morphine AdvReac Severe Nausea & Verified 12/27/17 21:24 Vomiting scopolamine AdvReac Unknown Confusion, Verified 12/27/17 21:24 Aggressive, hitting. codeine AdvReac Nausea & Verified 12/27/17 21:24 Vomiting Physical Exam Vitals: Vital Signs Temp Pulse Pulse Pulse Resp BP BP 12/28/17 08:00 97.6 F 73 16 105/56 12/28/17 04:00 98.5 F 77 18 168/82 12/28/17 03:00 76 18 12/28/17 02:01 98.7 F 84 18 189/86 12/28/17 01:11 79 16 148/80 12/27/17 21:21 98.2 F 83 18 179/86 Pulse Ox 12/28/17 08:00 94 L 12/28/17 04:00 95 12/28/17 03:00 12/28/17 02:01 96 12/28/17 01:11 95 12/27/17 21:21 97 Intake and Output 12/27/17 12/28/17 12/28/17 22:59 06:59 14:59 Other: Voiding Method Toilet Toilet Diaper Diaper Incontinent Weight 68.039 kg 68.039 kg PHYSICAL EXAMINATION: This is a 77-year-old female, alert and oriented in no apparent distress. HEENT: Head is atraumatic, normocephalic. Pupils equal, round. Neck is supple. There is no elevated jugular venous pressure. HEART EXAMINATION: Heart S1 S2 1 systolic murmur is heard at the base. CHEST EXAMINATION: Lungs are clear to auscultation and precussion. Positive left chest wall tenderness is noted on palpation , with movement and with deep breathing. ABDOMEN: Soft, nontender. Bowel sounds are heard. No organomegaly noted. EXTREMITIES: 2+ peripheral pulses with no evidence of peripheral edema and no calf tenderness noted]. NEUROLOGIC [patient is awake, alert and oriented -3.] . Results 12/27/17 21:41 12/27/17 21:41 Cardiac Enzymes 12/27/17 12/27/17 12/28/17 Range/Units 21:41 21:41 03:39 AST 76 H (14-36) U/L CK-MB (CK-2) 1.3 1.2 (0.0-2.4) ng/mL Troponin I <0.012 <0.012 (0.000-0.034) ng/mL Coagulation 12/27/17 Range/Units 21:41 PT 10.5 (9.0-12.0) sec APTT 21.8 L (22.0-30.0) sec CBC 12/27/17 Range/Units 21:41 WBC 8.9 (3.8-10.6) k/uL RBC 4.05 (3.80-5.40) m/uL Hgb 11.6 (11.4-16.0) gm/dL Hct 36.4 (34.0-46.0) % Plt Count 246 (150-450) k/uL Comprehensive Metabolic Panel 12/27/17 Range/Units 21:41 Sodium 142 (137-145) mmol/L Potassium 3.9 (3.5-5.1) mmol/L Chloride 99 (98-107) mmol/L Carbon Dioxide 25 (22-30) mmol/L BUN 15 (7-17) mg/dL Creatinine 1.10 H (0.52-1.04) mg/dL Glucose 104 H (74-99) mg/dL Calcium 9.6 (8.4-10.2) mg/dL AST 76 H (14-36) U/L ALT 46 (9-52) U/L Alkaline Phosphatase 107 (38-126) U/L Total Protein 7.2 (6.3-8.2) g/dL Albumin 4.1 (3.5-5.0) g/dL Current Medications Generic Name Dose Route Start Last Admin Trade Name Freq PRN Reason Stop Dose Admin Acetaminophen 650 mg 12/28/17 01:02 12/28/17 02:26 Tylenol Tab PO 650 mg Q4HR PRN Administration Pain Aspirin 325 mg 12/29/17 09:00 Aspirin PO DAILY RENAE Fentanyl Citrate 50 mcg 12/27/17 21:58 Sublimaze IV ONCE PRN Pain Lisinopril 10 mg 12/28/17 09:00 Zestril PO DAILY RENAE Nitroglycerin 0.4 mg 12/28/17 01:02 Nitrostat SUBLINGUAL Q5M PRN Chest Pain Intake and Output 12/27/17 12/28/17 12/28/17 22:59 06:59 14:59 Other: Voiding Method Toilet Toilet Diaper Diaper Incontinent Weight 68.039 kg 68.039 kg 12/27/17 21:41 12/27/17 21:41 EKG Interpretations (text) EKG shows a ventricular paced rhythm. Assessment and Plan Plan: Assessment and plan #1 chest pain, atypical in nature, musculoskeletal. Likely secondary to fall. Troponins negative 2. EKG shows a paced rhythm. Patient did have a myocardial perfusion imaging test done in September negative for reversible ischemia. #2 fall with no evidence of syncope #3 hypertension #4 prior pacemaker # 5 hyperlipidemia #6 diet controlled diabetes Plan From cardiology's perspective, no further workup required at this time. She can follow-up with Dr. Nath in the office post discharge, she has a scheduled appointment with him next week. DNP note has been reviewed, I agree with a documented findings and plan of care. Patient was seen and examined.
[2017-12-28 11:06] LABS: Creatine Kinase 217 U/L (30-135)
[2017-12-28 11:18] LABS: Creatine Kinase MB 0.9 ng/mL (0.0-2.4); Troponin I <0.012 ng/mL (0.000-0.034)
[2017-12-28 12:06] LABS: Glucose,Whole Blood 191 mg/dL (75-99)
--- NOTE | 2017-12-28 12:40 | P.HPIM ---
History of Present Illness H&P Date: 12/28/17 Chief Complaint: Chest pain This is a 77-year-old female with past medical history chest pain. When she tripped over a step and fell to the ground. She did not loose consciousness. She was able to get up by her own. She said since then she is a lot of chest pain on the left side of her chest. Her pain is getting worse with taking deep breath. Shortness of breath. Patient was concerned and presented to the emergency room. The emergency room, chest x-ray showed no acute findings. Patient was noted to have a lipid d-dimer scan was performed showed a 4 PE. Twelve-lead EKG showed no acute ischemic changes with a paced rhythm. Troponin is negative 3 sets. Patient was seen and evaluated by cardiology. Further testing was recommended. She recently had a cardiac scan in September. She was cleared by cardiology for discharge. When I saw her, patient continued to have chest pain and discomfort. I discussed with her obtaining a dedicated rib x-rays. I would also consult PT/ OT for further evaluation. #1 mechanical fall #2 chest pain atypical in nature, rule out fracture #3 underlying coronary artery disease #4 essential hypertension: Blood pressure within acceptable range #5 history of pacemaker implantation Review of Systems Review of system: 14 points review of systems were obtained and were negative except to what were mentioned in the HPI. Past Medical History Past Medical History: Cancer, Heart Failure, CVA/TIA, Diabetes Mellitus, GERD/ Reflux, Hypertension, Rheumatoid Arthritis (RA) Additional Past Medical History / Comment(s): gout, urinary incontinence pacemaker, breast cancer 2009 ,DIABETES -diet control., PROBLEMS WITH CONSTIPATION AND DIARRHEA- , ANEMIA. hx migraines, TIA 20 yrs ago, heart murmer , hiatal hernia, diverticulitis, History of Any Multi-Drug Resistant Organisms: None Reported Past Surgical History: Back Surgery, Bladder Surgery, Breast Surgery, Cholecystectomy, Joint Replacement, Orthopedic Surgery, Pacemaker, Tonsillectomy Additional Past Surgical History / Comment(s): right hip replacement, right shoulder surgery., right mastectomy, surgery for ectopic , spinal fusion, pacemaker, Bladder pacemaker for urine incontinence. philip fundoplication Past Anesthesia/Blood Transfusion Reactions: Previous Problems w/ Anesthesia, Postoperative Nausea & Vomiting (PONV) Additional Past Anesthesia/Blood Transfusion Reaction / Comment(s): stopped breathing after D & C Type of Cardiac Device: Permanent Pacemaker Device Placement Date:: 03/21/2016 Past Psychological History: Anxiety, Depression, PTSD Additional Psychological History / Comment(s): . Smoking Status: Former smoker Past Alcohol Use History: None Reported Additional Past Alcohol Use History / Comment(s): quit smoking 2005. smoked approx 20 yrs, 1 PPD. Past Drug Use History: None Reported - Past Family History Sister(s) Family Medical History: Cancer Additional Family Medical History / Comment(s): breast cancer Mother Family Medical History: CVA/TIA Additional Family Medical History / Comment(s): stroke at age 55 Father Family Medical History: Dementia, Myocardial Infarction ([place]) Additional Family Medical History / Comment(s): lived to be almost 100 Medications and Allergies Home Medications Medication Instructions Recorded Confirmed Type Allopurinol [Zyloprim] 300 mg PO DAILY@1500 01/22/16 12/28/17 History Citalopram Hydrobromide 40 mg PO HS 01/22/16 12/28/17 History [Citalopram HBr] Enalapril [Vasotec] 10 mg PO BID 01/22/16 12/28/17 History Simvastatin [Zocor] 10 mg PO HS 01/22/16 12/28/17 History risperiDONE [RisperDAL] 1 mg PO HS 01/22/16 12/28/17 History traMADol HCL [Ultram] 50 mg PO BID 03/19/16 12/28/17 History Aspirin [Adult Low Dose Aspirin EC] 81 mg PO DAILY 03/11/17 12/28/17 History Mirabegron [Myrbetriq] 50 mg PO DAILY 03/11/17 12/28/17 History Ciprofloxacin HCl [Cipro] 500 mg PO BID 12/20/17 12/28/17 History Furosemide [Lasix] 40 mg PO DAILY 12/20/17 12/28/17 History Metoprolol Succinate (ER) [Toprol 50 mg PO DAILY@1500 12/20/17 12/28/17 History XL] glipiZIDE [Glucotrol] 5 mg PO AC-BID #60 tab 12/22/17 12/28/17 Rx metFORMIN HCL [Glucophage] 500 mg PO BID #60 tab 12/22/17 12/28/17 Rx Allergies Allergy/AdvReac Type Severity Reaction Status Date / Time Iodine and Iodide Containing Allergy Mild Rash/Hives Verified 12/28/17 11:11 Produc Sulfa (Sulfonamide Allergy Rash/Hives Verified 12/28/17 11:11 Antibiotics) morphine AdvReac Severe Nausea & Verified 12/28/17 11:11 Vomiting scopolamine AdvReac Unknown Confusion, Verified 12/28/17 11:11 Aggressive, hitting. codeine AdvReac Nausea & Verified 12/28/17 11:11 Vomiting Physical Exam Vitals: Vital Signs Temp Pulse Pulse Pulse Resp BP BP 12/28/17 08:00 97.6 F 73 16 105/56 12/28/17 04:00 98.5 F 77 18 168/82 12/28/17 03:00 76 18 12/28/17 02:01 98.7 F 84 18 189/86 12/28/17 01:11 79 16 148/80 12/27/17 21:21 98.2 F 83 18 179/86 Pulse Ox 12/28/17 08:00 94 L 12/28/17 04:00 95 12/28/17 03:00 12/28/17 02:01 96 12/28/17 01:11 95 12/27/17 21:21 97 Intake and Output 12/27/17 12/28/17 12/28/17 22:59 06:59 14:59 Other: Voiding Method Toilet Toilet Diaper Diaper Incontinent Weight 68.039 kg 68.039 kg General: The patient is awake and alert, in no distress Eye: there is normal conjunctiva bilaterally. Neck: The neck is supple, there is no JVD. Cardiovascular: Normal S1-S2, no S3-S4, no murmurs. There is tenderness to palpation to the left chest wall Respiratory: Lungs clear to auscultation bilaterally Gastrointestinal: Abdomen is soft, nontender Musculoskeletal: There is no pedal edema. Neurological:. Speech is normal. Skin: Skin is warm and dry Results CBC & Chem 7: 12/27/17 21:41 12/27/17 21:41 Labs: Abnormal Lab Results - Last 24 Hours (Table) 12/27/17 12/27/17 12/27/17 Range/Units 21:41 21:41 21:41 APTT 21.8 L (22.0-30.0) sec D-Dimer 3.19 H (<0.60) mg/L FEU Creatinine 1.10 H (0.52-1.04) mg/dL Glucose 104 H (74-99) mg/dL POC Glucose (mg/dL) (75-99) mg/dL Magnesium 1.2 L (1.6-2.3) mg/dL AST 76 H (14-36) U/L Total Creatine Kinase 330 H (30-135) U/L 12/28/17 12/28/17 12/28/17 Range/Units 03:39 10:03 12:04 APTT (22.0-30.0) sec D-Dimer (<0.60) mg/L FEU Creatinine (0.52-1.04) mg/dL Glucose (74-99) mg/dL POC Glucose (mg/dL) 191 H (75-99) mg/dL Magnesium (1.6-2.3) mg/dL AST (14-36) U/L Total Creatine Kinase 262 H 217 H (30-135) U/L Thrombosis Risk Factor Assmnt - Choose All That Apply Each Risk Factor Represents 3 Points: Age 75 years or older Thrombosis Risk Factor Assessment Total Risk Factor Score: 3 Thrombosis Risk Factor Assessment Level: Moderate Risk Assessment and Plan Assessment: This is a 77-year-old female with past medical history chest pain. When she tripped over a step and fell to the ground. She did not loose consciousness. She was able to get up by her own. She said since then she is a lot of chest pain on the left side of her chest. Her pain is getting worse with taking deep breath. Shortness of breath. Patient was concerned and presented to the emergency room. The emergency room, chest x-ray showed no acute findings. Patient was noted to have a lipid d-dimer scan was performed showed a 4 PE. Twelve-lead EKG showed no acute ischemic changes with a paced rhythm. Troponin is negative 3 sets. Patient was seen and evaluated by cardiology. Further testing was recommended. She recently had a cardiac scan in September. She was cleared by cardiology for discharge. When I saw her, patient continued to have chest pain and discomfort. I discussed with her obtaining a dedicated rib x-rays. I would also consult PT/ OT for further evaluation. #1 mechanical fall #2 chest pain atypical in nature, rule out fracture #3 underlying coronary artery disease #4 essential hypertension: Blood pressure within acceptable range #5 history of pacemaker implantation
--- NOTE | 2017-12-28 14:48 | XR ---
EXAMINATION TYPE: XR ribs LT DATE OF EXAM: 12/28/2017 COMPARISON: December 27, 2017 HISTORY: Left rib pain after fall TECHNIQUE: 4 views left ribs were obtained. A view of the chest abdomen obtained on the previous day. FINDINGS: A discrete displaced acute rib fracture is not identified. Implantable cardiac device is un changed. As examination is suboptimal due to the implant cardiac device as well as EKG leads overlyin g the patient. IMPRESSION: No acute displaced rib fractures identified on this suboptimal examination.
[2017-12-28] MEDS: METOPROLOL SUCCINATE (ER) 50 MG TAB.ER.24H PO SCH (16:06)
[2017-12-28] MEDS: ALLOPURINOL 300 MG TAB PO SCH (16:06)
[2017-12-28 16:56] LABS: Glucose,Whole Blood 125 mg/dL (75-99)
[2017-12-28] MEDS: glipiZIDE 5 MG TAB PO SCH (17:34)
[2017-12-28] MEDS: metFORMIN 500 MG TAB PO SCH (17:34)
[2017-12-28] MEDS: traMADol 50 MG TAB PO SCH (18:37)
[2017-12-28] MEDS ORDERED: traMADol 50 MG TAB PO SCH (21:00)
[2017-12-28] MEDS ORDERED: ATORVASTATIN 10 MG TAB PO SCH (21:00)
[2017-12-28] MEDS ORDERED: CITALOPRAM HYDROBROMIDE 20 MG TAB PO SCH (21:00)
[2017-12-28] MEDS ORDERED: risperiDONE 1 MG TAB PO SCH (21:00)
[2017-12-28] MEDS: LISINOPRIL 20 MG TAB PO SCH (21:25)
[2017-12-29] MEDS: traMADol 50 MG TAB PO SCH (06:08)
[2017-12-29 07:08] LABS: Glucose,Whole Blood 122 mg/dL (75-99)
[2017-12-29 08:03] LABS: Basophils % (A) 1 %; Eosinophils # (A) 0.2 k/uL (0-0.7); Eosinophils % (A) 3 %; HGB 10.8 gm/dL (11.4-16.0); Lymphocytes # (A) 1.3 k/uL (1.0-4.8); Lymphocytes % (A) 20 %; MCH 29.4 pg (25.0-35.0); MCHC 31.8 g/dL (31.0-37.0); MCV 92.3 fL (80.0-100.0); Mean Platelet Volume 7.3; Monocytes # (A) 0.4 k/uL (0-1.0); Monocytes % (A) 6 %; Neutrophils # (A) 4.4 k/uL (1.3-7.7); Neutrophils % (A) 67 %; Platelet Count 229 k/uL (150-450); RBC 3.68 m/uL (3.80-5.40); RDW 15.4 % (11.5-15.5); WBC 6.5 k/uL (3.8-10.6)
[2017-12-29 08:12] VITALS: RESP 18
[2017-12-29] MEDS: metFORMIN 500 MG TAB PO SCH (08:17)
[2017-12-29] MEDS: LISINOPRIL 20 MG TAB PO SCH (08:17)
[2017-12-29] MEDS: glipiZIDE 5 MG TAB PO SCH (08:17)
[2017-12-29 08:18] LABS: Calcium 9.1 mg/dL (8.4-10.2); Potassium 4.1 mmol/L (3.5-5.1)
[2017-12-29] MEDS ORDERED: ASPIRIN 81 MG PO SCH (09:00)
[2017-12-29] MEDS ORDERED: FUROSEMIDE 40 MG TAB PO SCH (09:00)
[2017-12-29] MEDS ORDERED: ASPIRIN 325 MG TAB PO SCH (09:00)
[2017-12-29] MEDS ORDERED: Mirabegron [Myrbetriq] 50 MG PO SCH (09:00)
[2017-12-29 12:13] LABS: Glucose,Whole Blood 108 mg/dL (75-99)
--- NOTE | 2017-12-29 14:24 | P.DS ---
Providers Date of admission: 12/28/17 01:07 Expected date of discharge: 12/29/17 Attending physician: Richard Levy Consults: 12/28/17 01:02 Consult Physician Urgent Consulting Provider: Rigoberto Brownlee Consult Reason/Comments: Chest pain Do you want consulting provider notified?: Yes Primary care physician: Mariel Nix Hospital Course: Discharge diagnosis #1 mechanical fall #2 chest pain atypical in nature: No evidence of rib fracture. OH ruled out. VQ scan showing low probability of PE #3 underlying coronary artery disease #4 essential hypertension: Blood pressure within acceptable range #5 history of pacemaker implantation #6 hypomagnesemia: Check magnesium level before discharge. If low will give further supplement. Hospital course This is a 77-year-old female with past medical history chest pain. When she tripped over a step and fell to the ground. She did not loose consciousness. She was able to get up by her own. She said since then she is a lot of chest pain on the left side of her chest. Her pain is getting worse with taking deep breath. Shortness of breath. Patient was concerned and presented to the emergency room. The emergency room, chest x-ray showed no acute findings. Patient was noted to have an elevated d-dimer VQ scan was performed and shown a low probability of PE.. Twelve-lead EKG showed no acute ischemic changes with a paced rhythm. Troponin is negative 3 sets. Patient was seen and evaluated by cardiology. No Further testing was recommended. She recently had a myocardial perfusion imaging scan in September which was negative. She was cleared by cardiology for discharge. Patient had a rib x-ray which was negative for any fractures. Patient's chest pain is showing improvement. She is receiving Ultram that reduces some of the pain. Patient is worked with physical therapy and they recommended home with home physical therapy. Patient is feeling better and she is eager for discharge home. Patient is medically stable for discharge. Please refer to chart for any further details I performed an examination of the patient and discussed their management with the physician Clinic Office Assistant. I have reviewed the Physician Clinic Office Assistant's notes and agree with the documented findings and plan of care Patient Condition at Discharge: Stable Plan - Discharge Summary New Discharge Prescriptions: Continue Allopurinol [Zyloprim] 300 mg PO DAILY@1500 Citalopram Hydrobromide [Citalopram HBr] 40 mg PO HS Enalapril [Vasotec] 10 mg PO BID risperiDONE [RisperDAL] 1 mg PO HS Simvastatin [Zocor] 10 mg PO HS traMADol HCL [Ultram] 50 mg PO BID Mirabegron [Myrbetriq] 50 mg PO DAILY Aspirin [Adult Low Dose Aspirin EC] 81 mg PO DAILY Furosemide [Lasix] 40 mg PO DAILY Metoprolol Succinate (ER) [Toprol XL] 50 mg PO DAILY@1500 glipiZIDE [Glucotrol] 5 mg PO AC-BID #60 tab metFORMIN HCL [Glucophage] 500 mg PO BID #60 tab Discontinued Ciprofloxacin HCl [Cipro] 500 mg PO BID Discharge Medication List Allopurinol [Zyloprim] 300 mg PO DAILY@1500 01/22/16 [History] Citalopram Hydrobromide [Citalopram HBr] 40 mg PO HS 01/22/16 [History] Enalapril [Vasotec] 10 mg PO BID 01/22/16 [History] Simvastatin [Zocor] 10 mg PO HS 01/22/16 [History] risperiDONE [RisperDAL] 1 mg PO HS 01/22/16 [History] traMADol HCL [Ultram] 50 mg PO BID 03/19/16 [History] Aspirin [Adult Low Dose Aspirin EC] 81 mg PO DAILY 03/11/17 [History] Mirabegron [Myrbetriq] 50 mg PO DAILY 03/11/17 [History] Furosemide [Lasix] 40 mg PO DAILY 12/20/17 [History] Metoprolol Succinate (ER) [Toprol XL] 50 mg PO DAILY@1500 12/20/17 [History] glipiZIDE [Glucotrol] 5 mg PO AC-BID #60 tab 12/22/17 [Rx] metFORMIN HCL [Glucophage] 500 mg PO BID #60 tab 12/22/17 [Rx] Follow up Appointment(s)/Referral(s): Mariel Nix DO [Primary Care Provider] - 3 Days Activity/Diet/Wound Care/Special Instructions: Diet: cardiac Activity: as tolerated Home care and PT Discharge Disposition: HOME WITH HOME HEALTH SERVICES
[2017-12-29] MEDS: METOPROLOL SUCCINATE (ER) 50 MG TAB.ER.24H PO SCH (16:10)
[2017-12-29] MEDS: ALLOPURINOL 300 MG TAB PO SCH (16:10)
[2017-12-29] MEDS ORDERED: MAGNESIUM SULFATE-D5W PMX 1 GM in DEXTROSE/WATER 1 100ML.BAG IVPB ONE (17:00)
[2017-12-29 17:24] LABS: Glucose,Whole Blood 118 mg/dL (75-99)
[2017-12-29 17:34] VITALS: BP 111/60; PULSE 80; TEMP 98.2
== END 2017-12-29 19:00 | disposition home health service (06) ==
LOC: EC 21:18 → 3OBS 12-28 01:07
PROVIDERS: ADMIT Internal Medicine; ATTEND Internal Medicine
DX: R07.89 Other chest pain (principal); I25.10 Atherosclerotic heart disease of native coronary artery without angina pectoris; I10 Essential (primary) hypertension; E83.42 Hypomagnesemia; Z95.0 Presence of cardiac pacemaker; M06.9 Rheumatoid arthritis, unspecified; M10.9 Gout, unspecified; R32 Unspecified urinary incontinence; E11.9 Type 2 diabetes mellitus without complications; E78.5 Hyperlipidemia, unspecified; F32.9 Major depressive disorder, single episode, unspecified; I11.0 Hypertensive heart disease with heart failure; I50.9 Heart failure, unspecified; F43.10 Post-traumatic stress disorder, unspecified; F41.9 Anxiety disorder, unspecified; Z87.891 Personal history of nicotine dependence; K21.9 Gastro-esophageal reflux disease without esophagitis; R79.1 Abnormal coagulation profile; W10.9XXA Fall (on) (from) unspecified stairs and steps, initial encounter; Z79.82 Long term (current) use of aspirin; Z79.84 Long term (current) use of oral hypoglycemic drugs; Z80.3 Family history of malignant neoplasm of breast; Z82.49 Family history of ischemic heart disease and other diseases of the circulatory system; Z85.3 Personal history of malignant neoplasm of breast; Z86.73 Personal history of transient ischemic attack (TIA), and cerebral infarction without residual deficits; Z90.11 Acquired absence of right breast and nipple; Z96.641 Presence of right artificial hip joint; Z98.1 Arthrodesis status; Z90.49 Acquired absence of other specified parts of digestive tract
CPT/HCPCS: 96361 ×3; 96365; 96375; 99291; 36415; 97162; 97165; 85379; 80061; 80053; 80048; 82550 ×2; 82553 ×2; 83735 ×2; 84484 ×2; 85025 ×2; 85610; 85730; 71100; 71046; 78582; G0378 ×2; A9540; A9567; J2405; J3475

== ENCOUNTER → 2018-07-03 | Outpatient (CLI) | payer OTHER ==
--- NOTE | 2018-07-06 09:01 | MM ---
Reason for exam: additional evaluation requested from prior study. Last mammogram was performed 1 year and 7 months ago. History: Patient is postmenopausal and has history of breast cancer at age 69. Family history of breast cancer in sister at age 60. Mastectomy of the right breast, January 15, 2010. Malignant right mammotome panel of the right breast, January 01, 2010. Chemotherapy, 2009. Took estrogen for 12 years. Taking antineoplastic for 6 months beginning at age 69. Physical Findings: Nurse did not find any significant physical abnormalities on exam. MG 3D Diag Mammo W/Cad LT CC and MLO view(s) were taken of the left breast. Prior study comparison: November 20, 2016, left breast MG 3d diag mammo w/cad LT. November 20, 2015, left breast MG 3d diag mammo w/cad LT. The breast tissue is extremely dense which could obscure a lesion on mammography. Pacer over left breast. No significant new findings when compared with previous films. These results were verbally communicated with the patient and result sheet given to the patient on 07/03/18. ASSESSMENT: Benign, BI-RAD 2 RECOMMENDATION: Follow-up diagnostic mammogram of the left breast in 1 year.
== END ==
LOC: RADMAMWWP 13:40
PROVIDERS: ATTEND Family Medicine
DX: R92.8 Other abnormal and inconclusive findings on diagnostic imaging of breast (principal)
CPT/HCPCS: 77061; 77065

== ENCOUNTER 2019-05-09 11:59 | Inpatient (IN) | payer OTHER ==
--- NOTE | 2019-05-09 12:15 | ED ---
General Adult HPI - General Chief complaint: Shortness of Breath Stated complaint: SOB Time Seen by Provider: 05/09/19 12:00 Source: patient, EMS, RN notes reviewed Mode of arrival: EMS Limitations: no limitations - History of Present Illness Initial comments: This is an 78-year-old female who is transferred from [facility] emergency department. Patient came in to sat in the 80s and it was determined at that time that the patient had congestive heart failure. Patient states she was supposed to be on Lasix but because it made her urinate often she never took it. While at [facility] they did give her Lasix air and placed on oxygen and she was sent in the high 90s when she was transferred and was feeling considerably better. Currently patient states she feels almost to her baseline patient states she's never had any chest pain or palpitations today. Patient denies any recent fever chills or cough. Patient denies any headache patient denies numbness weakness. Patient denies any significant swelling to her legs. - Related Data Home Medications Medication Instructions Recorded Confirmed Allopurinol [Zyloprim] 300 mg PO DAILY@1500 01/22/16 12/28/17 Citalopram Hydrobromide 40 mg PO HS 01/22/16 12/28/17 [Citalopram HBr] Enalapril [Vasotec] 10 mg PO BID 01/22/16 12/28/17 Simvastatin [Zocor] 10 mg PO HS 01/22/16 12/28/17 risperiDONE [RisperDAL] 1 mg PO HS 01/22/16 12/28/17 traMADol HCL [Ultram] 50 mg PO BID 03/19/16 12/28/17 Aspirin [Adult Low Dose Aspirin EC] 81 mg PO DAILY 03/11/17 12/28/17 Mirabegron [Myrbetriq] 50 mg PO DAILY 03/11/17 12/28/17 Furosemide [Lasix] 40 mg PO DAILY 12/20/17 12/28/17 Metoprolol Succinate (ER) [Toprol 50 mg PO DAILY@1500 12/20/17 12/28/17 XL] Previous Rx's Medication Instructions Recorded glipiZIDE [Glucotrol] 5 mg PO AC-BID #60 tab 12/22/17 metFORMIN HCL [Glucophage] 500 mg PO BID #60 tab 12/22/17 Allergies Allergy/AdvReac Type Severity Reaction Status Date / Time Iodine and Iodide Containing Allergy Mild Rash/Hives Verified 05/09/19 12:25 Produc Sulfa (Sulfonamide Allergy Rash/Hives Verified 05/09/19 12:25 Antibiotics) scopolamine AdvReac Unknown Confusion, Verified 05/09/19 12:25 Aggressive, hitting. codeine AdvReac Nausea & Verified 05/09/19 12:25 Vomiting Review of Systems ROS Statement: Those systems with pertinent positive or pertinent negative responses have been documented in the HPI. ROS Other: All systems not noted in ROS Statement are negative. Past Medical History Past Medical History: Cancer, Heart Failure, CVA/TIA, Diabetes Mellitus, GERD/Reflux, Hypertension, Rheumatoid Arthritis (RA) Additional Past Medical History / Comment(s): gout, urinary incontinence pacemaker, breast cancer 2009 ,DIABETES -diet control., PROBLEMS WITH CONSTIPATION AND DIARRHEA- , ANEMIA. hx migraines, TIA 20 yrs ago, heart murmer, hiatal hernia, diverticulitis, History of Any Multi-Drug Resistant Organisms: None Reported Past Surgical History: Back Surgery, Bladder Surgery, Breast Surgery, Cholecystectomy, Joint Replacement, Orthopedic Surgery, Pacemaker, Tonsillectomy Additional Past Surgical History / Comment(s): right hip replacement, right shoulder surgery., right mastectomy, surgery for ectopic , spinal fusion, pacemaker, Bladder pacemaker for urine incontinence. philip fundoplication Past Anesthesia/Blood Transfusion Reactions: Previous Problems w/ Anesthesia, Postoperative Nausea & Vomiting (PONV) Additional Past Anesthesia/Blood Transfusion Reaction / Comment(s): stopped breathing after D & C Type of Cardiac Device: Permanent Pacemaker Device Placement Date:: 03/21/2016 Past Psychological History: Anxiety, Depression, PTSD Smoking Status: Former smoker Past Alcohol Use History: None Reported Past Drug Use History: None Reported - Past Family History Sister(s) Family Medical History: Cancer Additional Family Medical History / Comment(s): breast cancer Mother Family Medical History: CVA/TIA Additional Family Medical History / Comment(s): stroke at age 55 Father Family Medical History: Dementia, Myocardial Infarction ([place]) Additional Family Medical History / Comment(s): lived to be almost 100 General Exam - General Exam Comments Initial Comments: GENERAL: Patient is well-developed and well-nourished. Patient is nontoxic and well- hydrated and is in mild distress. ENT: Neck is soft and supple. No significant lymphadenopathy is noted. Oropharynx is clear. Moist mucous membranes. Neck has full range of motion without eliciting any pain. EYES: The sclera were anicteric and conjunctiva were pink and moist. Extraocular movements were intact and pupils were equal round and reactive to light. Eyelids were unremarkable. PULMONARY: Unlabored respirations. Good breath sounds bilaterally. No audible rales rhonchi or wheezing was noted. CARDIOVASCULAR: There is a regular rate and rhythm without any murmurs gallops or rubs. ABDOMEN: Soft and nontender with normal bowel sounds. No palpable organomegaly was noted. There is no palpable pulsatile mass. SKIN: Skin is clear with no lesions or rashes and otherwise unremarkable. NEUROLOGIC: Patient is alert and oriented x3. Cranial nerves II through XII are grossly intact. Motor and sensory are also intact. Normal speech, volume and content. Symmetrical smile. MUSCULOSKELETAL: Normal extremities with adequate strength and full range of motion. No lower extremity swelling or edema. No calf tenderness. LYMPHATICS: No significant lymphadenopathy is noted PSYCHIATRIC: Normal psychiatric evaluation. 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 I spoke with Dr. Davila she agreed to admit the patient admitted the patient for congestive heart attack. I consult cardiology. I continued Lasix Nitropaste on the floor. Disposition Clinical Impression: Acute pulmonary edema Disposition: ADMITTED IP TO THIS HOSP Referrals: Mariel Nix DO [Primary Care Provider] - 1-2 days Time of Disposition: 12:31
--- NOTE | 2019-05-09 12:33 | XR ---
EXAMINATION TYPE: XR chest 2V DATE OF EXAM: 05/09/2019 COMPARISON: 12/19/2018 HISTORY: Shortness of breath with history of congestive heart failure TECHNIQUE: Frontal and lateral views of the chest are obtained. FINDINGS: There are very trace pleural effusions. Cardiomediastinal silhouette is enlarged. Mild pul monary vascular congestion is seen throughout. Multilead left-sided cardiac device overlies air. Diff use osseous demineralization. Sequela of chronic rotator cuff tear on the right. Minimal degenerative changes of the spine. No evident pneumothorax. IMPRESSION: Mild degree pulmonary vascular congestion and trace pleural effusions. Correlate for car diogenic versus noncardiogenic fluid overload.
[2019-05-09] MEDS: FUROSEMIDE 10 MG/ML 4 ML VIAL IV SCH ×2 (14:39→19:58)
[2019-05-09 16:28] LABS: Glucose,Whole Blood 192 mg/dL (75-99)
[2019-05-09] MEDS ORDERED: ALBUTEROL NEBULIZED 2.5 MG/3 ML INHALATION PRN (18:52)
[2019-05-09 19:36] LABS: Basophils # (A) 0.1 k/uL (0-0.2); Basophils % (A) 1 %; Eosinophils # (A) 0.2 k/uL (0-0.7); Eosinophils % (A) 2 %; HCT 34.7 % (34.0-46.0); HGB 10.9 gm/dL (11.4-16.0); Lymphocytes # (A) 1.6 k/uL (1.0-4.8); Lymphocytes % (A) 19 %; MCH 27.5 pg (25.0-35.0); MCHC 31.3 g/dL (31.0-37.0); MCV 87.8 fL (80.0-100.0); Monocytes # (A) 0.5 k/uL (0-1.0); Monocytes % (A) 6 %; Neutrophils # (A) 5.7 k/uL (1.3-7.7); Neutrophils % (A) 69 %; Platelet Count 172 k/uL (150-450); RBC 3.96 m/uL (3.80-5.40); RDW 15.9 % (11.5-15.5); WBC 8.2 k/uL (3.8-10.6)
[2019-05-09 19:45] LABS: Calcium 9.2 mg/dL (8.4-10.2); Potassium 3.6 mmol/L (3.5-5.1)
[2019-05-09] MEDS: risperiDONE 1 MG TAB PO SCH (19:57)
[2019-05-09] MEDS: CITALOPRAM HYDROBROMIDE 20 MG TAB PO SCH (19:57)
[2019-05-09] MEDS: traZODone HCL 50 MG TAB PO SCH (19:57)
[2019-05-09] MEDS: INSULIN ASPART (NovoLOG) 100 UNIT/ML VIAL SQ SCH (20:02)
[2019-05-09 20:03] LABS: Glucose,Whole Blood 175 mg/dL (75-99)
[2019-05-09] MEDS ORDERED: ATORVASTATIN 10 MG TAB PO SCH (21:00)
--- NOTE | 2019-05-10 00:48 | HP ---
HISTORY AND PHYSICAL DATE OF SERVICE: 05/09/2019 I am covering for Dr. Reardon CHIEF COMPLAINT: Shortness of breath. HISTORY OF PRESENT ILLNESS: This 78-year-old woman with a past history of CHF, CVA, TIA, diabetes, hypertension, history of rheumatoid arthritis, history of gout being followed by Dr. Mariel Nix in the outpatient setting, is apparently not taking Lasix because of fear of going out and about going to the bathrooms so the patient stopped Lasix for several days. Patient now complaining of increased shortness of breath. The patient came to [facility] for further evaluation and treatment. There is no history of chest pain, palpitations. Chest x-ray was done in the ER which was reviewed personally by me and showed mild degree of pulmonary vascular congestion and trace pleural effusion. There is no history of fever or rigors. No history of headache, loss of consciousness or seizures. PAST MEDICAL HISTORY: History of CHF, history of CVA, TIA, diabetes, hypertension, rheumatoid arthritis, gout, urinary incontinence, back surgery. HOME MEDICATIONS: 1. Trazodone 50 mg p.o. q.h.s. 2. Risperdal 1 mg p.o. q.h.s. 3. Glucophage 500 mg p.o. b.i.d. 4. Glucotrol 5 mg p.o. daily. 5. Zocor 10 mg q.h.s. 6. Movantik 25 mg p.o. daily. 7. Remeron 7.5 mg p.o. daily. 8. Toprol-XL 50 mg p.o. 9. Colestipol 1 tablet p.o. daily. 10.Celexa 40 mg q.h.s. 11.Zyloprim 300 mg daily. 12.Albuterol 1-2 puffs q.4 p.r.n. ALLERGIES: SULFA, SCOPOLAMINE, CODEINE. FAMILY HISTORY: History of breast cancer in the family. SOCIAL HISTORY: Previous history of smoking, no history of current smoking or alcohol. REVIEW OF SYSTEMS: ENT: Diminished vision. Diminished hearing. CARDIOVASCULAR system as mentioned earlier. GI: No nausea. : No dysuria. NERVOUS SYSTEM: No numbness or weakness. ALLERGY: No asthma or hayfever. MUSCULOSKELETAL: As mentioned earlier. HEMATOLOGY: No history of anemia. ENDOCRINE: Diabetes. CONSTITUTIONAL: As mentioned earlier. DERMATOLOGY: Negative. RHEUMATOLOGY: Negative. PSYCHIATRY: As mentioned earlier. PHYSICAL EXAMINATION: Alert and oriented x3. Pulse 77, blood pressure 158/84, respiration 18, temperature 98.9, pulse ox 97% on 4 L. HEENT: Conjunctivae normal. Oral mucosa moist. NECK: No jugular venous distention. No lymph node enlargement. CARDIOVASCULAR: S1, S2. RESPIRATORY: Diminished breath sounds at the bases. A few scattered rhonchi and basilar crackles. ABDOMEN: Soft, nontender. No mass. LEGS: No edema, no swelling. NERVOUS SYSTEM: Higher functions mentioned earlier. Moves all four limbs. No focal deficits. LYMPHATICS: No lymph node in neck or axilla. SKIN: No rash. JOINTS: No active deforming arthropathy. LABS: WBC 8.2, hemoglobin 10.9, glucose 175. ASSESSMENT: 1. Congestive heart failure acute exacerbation with ejection fraction unknown. 2. History of cerebrovascular accident, transient ischemic attack. 3. Diabetes mellitus type 2. 4. Hypertension. 5. History of rheumatoid arthritis. 6. History of gout. 7. History of urine incontinence. 8. History of breast cancer. 9. History of bladder surgery. 10.History of cholecystectomy. 11.History of degenerative joint disease. 12.History of anxiety, depression, posttraumatic stress disorder. 13.Remote history of nicotine dependence. RECOMMENDATIONS AND DISCUSSION: In this 78-year-old woman who presented with multiple complex medical issues, at this time I recommend to continue current management, continue symptomatic treatment. Will initiate IV diuretics. Resume the home medication. Monitor blood sugars closely. It is also recommended the patient to try taking Lasix in the afternoon. Otherwise, we will continue to monitor. A 2D echo with Doppler is also ordered and closely follow with Cardiology. Prognosis guarded because of multiple complex medical issues. Further recommendations to follow. Dr. Reardon will follow tomorrow. MMODL / IJN: [id number] /
[2019-05-10 06:11] LABS: Anisocytosis Slight; Basophils # (A) 0.1 k/uL (0-0.2); Basophils % (A) 1 %; Eosinophils # (A) 0.3 k/uL (0-0.7); Eosinophils % (A) 4 %; HCT 35.7 % (34.0-46.0); HGB 11.3 gm/dL (11.4-16.0); Lymphocytes # (A) 1.4 k/uL (1.0-4.8); Lymphocytes % (A) 20 %; MCH 27.8 pg (25.0-35.0); MCHC 31.6 g/dL (31.0-37.0); Mean Platelet Volume 7.5; Monocytes # (A) 0.5 k/uL (0-1.0); Monocytes % (A) 7 %; Neutrophils # (A) 4.7 k/uL (1.3-7.7); Neutrophils % (A) 65 %; Platelet Count 194 k/uL (150-450); RBC 4.06 m/uL (3.80-5.40); RDW 16.7 % (11.5-15.5); WBC 7.2 k/uL (3.8-10.6)
[2019-05-10 06:23] LABS: Calcium 9.2 mg/dL (8.4-10.2); Potassium 3.5 mmol/L (3.5-5.1)
[2019-05-10 06:37] LABS: Glucose,Whole Blood 144 mg/dL (75-99)
[2019-05-10] MEDS: metFORMIN 500 MG TAB PO SCH ×2 (06:51→20:34)
[2019-05-10] MEDS: INSULIN ASPART (NovoLOG) 100 UNIT/ML VIAL SQ SCH ×4 (06:52→20:34)
[2019-05-10] MEDS: FUROSEMIDE 10 MG/ML 4 ML VIAL IV SCH ×2 (08:10→20:34)
[2019-05-10] MEDS: MIRTAZAPINE 15 MG TAB PO SCH (08:10)
[2019-05-10] MEDS: glipiZIDE 5 MG TAB PO SCH (08:10)
[2019-05-10] MEDS: METOPROLOL SUCCINATE (ER) 50 MG TAB.ER.24H PO SCH (08:10)
--- NOTE | 2019-05-10 08:30 | P.CRDCN ---
History of Present Illness Consult date: 05/10/19 Requesting physician: Delvin Reardon Consult reason: shortness of breath Chief complaint: Shortness of breath History of present illness: This is an 78-year-old female who follows regularly with Dr. Nath in the office. She does have a history of hypertension, hyperlipidemia, prior pace maker implantation, diabetes, history of thoracic aortic aneurysm, hyperlipidemia, hypertension, rheumatoid arthritis, prior TIA, history of gout, she states that she went to [facility] because of symptoms of progressively worsening shortness of breath. According to the patient she's been short of breath for one year however recently that breathing has become significantly worse to the point where she felt that she could not breathe at all. Patient also states that she had stopped taking her Lasix at home because of fear of having to go to the bathroom frequently when she was outside of the home. Chest x-ray showed mild degree of pulmonary vascular congestion and trace pleural effusions. Correlate for cardiogenic versus noncardiogenic fluid overload. Blood pressure on arrival here 152/90, heart rate in the 70s, 95% on 5 L of oxygen. Blood pressure 152/70 with a heart rate in the 80s, 96% on 4 L of oxygen. White blood cell count 7.2, hemoglobin 11.3, platelet count 194. S odium 139, potassium 3.5, BUN 25 and creatinine 0.9. I do not currently have any lab data from [facility]. The patient has been initiated on IV Lasix, she still complains of feeling quite short of breath this morning although she does state that her breathing is improving. She is putting out excellent amounts of urine. Past Medical History Past Medical History: Cancer, Heart Failure, CVA/TIA, Diabetes Mellitus, Hypertension, Rheumatoid Arthritis (RA) Additional Past Medical History / Comment(s): gout, urinary incontinence pacemaker, breast cancer 2009 ,DIABETES -diet control., PROBLEMS WITH CONSTIPATION AND DIARRHEA- , ANEMIA. hx migraines, TIA 20 yrs ago, heart murmer, hiatal hernia, diverticulitis, History of Any Multi-Drug Resistant Organisms: None Reported Past Surgical History: Back Surgery, Bladder Surgery, Breast Surgery, Cholecystectomy, Joint Replacement, Orthopedic Surgery, Pacemaker, Tonsillectomy Additional Past Surgical History / Comment(s): right hip replacement, right shoulder surgery., right mastectomy, surgery for ectopic , spinal fusion, pacemaker, Bladder pacemaker for urine incontinence. philip fundopl ication Past Anesthesia/Blood Transfusion Reactions: Previous Problems w/ Anesthesia, Postoperative Nausea & Vomiting (PONV) Additional Past Anesthesia/Blood Transfusion Reaction / Comment(s): stopped breathing after D & C Type of Cardiac Device: Permanent Pacemaker Device Placement Date:: 03/21/2016 Past Psychological History: Anxiety, Depression, PTSD Additional Psychological History / Comment(s): . Smoking Status: Former smoker Past Alcohol Use History: None Reported Additional Past Alcohol Use History / Comment(s): quit smoking 2005. smoked approx 20 yrs, 1 PPD. Past Drug Use History: None Reported - Past Family History Sister(s) Family Medical History: Cancer Additional Family Medical History / Comment(s): breast cancer Mother Family Medical History: CVA/TIA Additional Family Medical History / Comment(s): stroke at age 55 Father Family Medical History: Dementia, Myocardial Infarction ([place]) Additional Family Medical History / Comment(s): lived to be almost 100 Medications and Allergies Home Medications Medication Instructions Recorded Confirmed Type Allopurinol [Zyloprim] 300 mg PO DAILY@1500 01/22/16 05/09/19 History Citalopram Hydrobromide 40 mg PO HS 01/22/16 05/09/19 History [Citalopram HBr] Simvastatin [Zocor] 10 mg PO HS 01/22/16 05/09/19 History risperiDONE [RisperDAL] 1 mg PO HS 01/22/16 05/09/19 History Metoprolol Succinate (ER) [Toprol 50 mg PO DAILY 12/20/17 05/09/19 History XL] metFORMIN HCL [Glucophage] 500 mg PO BID #60 tab 12/22/17 05/09/19 Rx Albuterol Sulfate [Albuterol 1 - 2 puff PO RT-Q4H PRN 05/09/19 05/09/19 History Sulfate Hfa] Colestipol HCl 1 tab PO DAILY 05/09/19 05/09/19 History Mirtazapine 7.5 mg PO DAILY 05/09/19 05/09/19 History Naloxegol Oxalate [Movantik] 25 mg PO DAILY 05/09/19 05/09/19 History glipiZIDE [Glucotrol] 5 mg PO DAILY 05/09/19 05/09/19 History traZODone HCL 50 mg PO HS 05/09/19 05/09/19 History Allergies Allergy/AdvReac Type Severity Reaction Status Date / Time Iodine and Iodide Containing Allergy Mild Rash/Hives Verified 05/09/19 12:25 Produc Sulfa (Sulfonamide Allergy Rash/Hives Verified 05/09/19 12:25 Antibiotics) scopolamine AdvReac Unknown Confusion, Verified 05/09/19 12:25 Aggressive, hitting. codeine AdvReac Nausea & Verified 05/09/19 12:25 Vomiting Physical Exam Vitals: Vital Signs Temp Pulse Pulse Resp BP BP Pulse Ox 05/10/19 04:00 97.6 F 84 17 152/75 96 05/09/19 22:55 98 F 86 18 140/78 97 05/09/19 19:49 98.9 F 77 18 158/84 97 05/09/19 16:00 97.9 F 84 20 145/84 98 05/09/19 13:17 98.5 F 76 18 118/78 94 L 05/09/19 12:12 75 05/09/19 12:07 98.1 F 78 20 152/90 95 Intake and Output 05/09/19 05/10/19 05/10/19 22:59 06:59 14:59 Output Total 1475 2500 Balance -1475 -2500 Output: Urine 1475 2500 Other: Voiding Method Indwelling Catheter Indwelling Catheter PHYSICAL EXAMINATION: GENERAL: 78-year-old female in no acute distress at the time of my examination HEENT: Head is atraumatic, normocephalic. Pupils equal, round. Sclera anicteric. Conjunctiva are clear. Mucous membranes of the mouth are moist. Ne ck is supple. There is elevated jugular venous pressure. No carotid bruit is heard. HEART EXAMINATION: Heart S1 S2 1 systolic murmur is heard CHEST EXAMINATION: Lungs reveal scattered coarse rhonchi throughout with diminished air entry to the bases.] ABDOMEN: Soft, nontender. Bowel sounds are heard. No organomegaly noted. EXTREMITIES: 2+ peripheral pulses with trace evidence of peripheral edema and no calf tenderness noted. NEUROLOGIC patient is awake, alert and oriented X3. . Results 05/10/19 05:43 05/10/19 05:43 CBC 05/09/19 05/10/19 Range/Units 19:12 05:43 WBC 8.2 7.2 (3.8-10.6) k/uL RBC 3.96 4.06 (3.80-5.40) m/uL Hgb 10.9 L 11.3 L (11.4-16.0) gm/dL Hct 34.7 35.7 (34.0-46.0) % Plt Count 172 194 (150-450) k/uL Comprehensive Metabolic Panel 05/09/19 05/10/19 Range/Units 19:12 05:43 Sodium 139 139 (137-145) mmol/L Potassium 3.6 3.5 (3.5-5.1) mmol/L Chloride 102 103 (98-107) mmol/L Carbon Dioxide 22 24 (22-30) mmol/L BUN 20 H 25 H (7-17) mg/dL Creatinine 0.92 0.90 (0.52-1.04) mg/dL Glucose 146 H 149 H (74-99) mg/dL Calcium 9.2 9.2 (8.4-10.2) mg/dL Current Medications Generic Name Dose Route Start Last Admin Trade Name Freq PRN Reason Stop Dose Admin Albuterol Sulfate 2.5 mg 05/09/19 18:52 Ventolin Nebulized INHALATION RT-Q4H PRN Shortness Of Breath Allopurinol 300 mg 05/10/19 15:00 Zyloprim PO DAILY@1500 RENAE Atorvastatin Calcium 10 mg 05/09/19 21:00 05/09/19 19:58 Lipitor PO 10 mg HS RENAE Administration Citalopram Hydrobromide 40 mg 05/09/19 21:00 05/09/19 19:57 Celexa PO 40 mg HS RENAE Administration Furosemide 40 mg 05/09/19 12:45 05/09/19 19:58 Lasix IV 40 mg Q12HR RENAE Administration Glipizide 5 mg 05/10/19 09:00 Glucotrol PO DAILY [facility] Insulin Aspart 0 unit 05/09/19 21:00 05/10/19 06:52 Novolog SQ 1 unit ACHS [facility] Administration Protocol Metformin HCl 500 mg 05/10/19 07:30 05/10/19 06:51 Glucophage PO 500 mg BID-W/MEALS RENAE Administration Metoprolol Succinate 50 mg 05/10/19 09:00 Toprol Xl PO DAILY [facility] Mirtazapine 7.5 mg 05/10/19 09:00 Remeron PO DAILY RENAE Naloxegol Oxalate [ 25 mg 05/10/19 09:00 Movantik] PO DAILY RENAE Colestid (Colestipol 1 tab 05/10/19 10:00 Hcl) PO DAILY@1000 RENAE Risperidone 1 mg 05/09/19 21:00 05/09/19 19:57 Risperdal PO 1 mg HS RENAE Administration Trazodone HCl 50 mg 05/09/19 21:00 05/09/19 19:57 Desyrel PO 50 mg HS RENAE Administration Intake and Output 05/09/19 05/10/19 05/10/19 22:59 06:59 14:59 Output Total 1475 2500 Balance -1475 -2500 Output: Urine 1475 2500 Other: Voiding Method Indwelling Catheter Indwelling Catheter 05/10/19 05:43 05/10/19 05:43 EKG Interpretations (text) No EKG available Assessment and Plan Plan: Assessment and plan #1 symptoms of progressively worsening shortness of breath, chest x-ray suggests congestive heart failure, we will obtain a BNP level. Could be a combination of congestive heart failure and possible tracheobronchitis #2 hypertension #3 diabetes #4 hyperlipidemia #5 prior pacemaker implantation #6 thoracic aortic aneurysm #7 prior TIA #8 GERD #9 gout #10 rheumatoid arthritis Plan We will obtain an echocardiogram with Doppler study, continue IV Lasix, start the patient on an JASPREET inhibitor and Aldactone, continue metoprolol. Further recommendations to follow. DNP note has been reviewed, I agree with a documented findings and plan of care. Patient was seen and examined.
[2019-05-10 11:41] LABS: Glucose,Whole Blood 180 mg/dL (75-99)
--- NOTE | 2019-05-10 12:00 | ECHOF ---
Referral Reason:chf MEASUREMENTS -------- HEIGHT: 157.5 cm WEIGHT: 77.1 kg BP: 152/75 IVSd: 1.4 cm (0.6 - 1.1) LVIDd: 3.3 cm (3.9 - 5.3) LVPWd: 1.3 cm (0.6 - 1.1) IVSs: 1.6 cm LVIDs: 2.7 cm LVPWs: 1.5 cm LA Diam: 3.9 cm (2.7 - 3.8) LAESV Index (A-L): 25.76 ml/m Ao Diam: 3.8 cm (2.0 - 3.7) AV Cusp: 1.1 cm (1.5 - 2.6) LA Diam: 4.0 cm (2.7 - 3.8) MV EXCURSION: 14.751 mm (> 18.000) MV EF SLOPE: 50 mm/s (70 - 150) EPSS: 0.6 cm MV E Jones: 0.76 m/s MV DecT: 274 ms MV A Jones: 1.15 m/s MV E/A Ratio: 0.67 AV maxP.52 mmHg AV meanP.91 mmHg RAP: 5.00 mmHg RVSP: 11.77 mmHg FINDINGS -------- Paced rhythm. This was a technically adequate study. The left ventricular size is normal. There is mild concentric left ventricular hypertrophy. Overa ll left ventricular systolic function is low-normal with, an EF between 50 - 55 %. Left ventricular fillimg pressure cannot be estimated due to paced rhythm. The right ventricle is normal in size. The left atrial size is normal. Normal LA size by volume 22+/-6 ml/m2. The right atrial size is normal. There is mild aortic regurgitation. There is mild aortic stenosis present. Peak/mean gradient acr oss the Aortic Valve is 14.52mmHg / 8.91mmHg. Mild mitral annular calcification present. Mild mitral regurgitation is present. Mild tricuspid regurgitation present. There is no evidence of pulmonary hypertension. The right v entricular systolic pressure, as measured by Doppler, is 11.77mmHg. Trace/mild (physiologic) pulmonic regurgitation. The aortic root size is normal. There is no pericardial effusion. CONCLUSIONS -------- 1. Paced rhythm. 2. This was a technically adequate study. 3. The left ventricular size is normal. 4. There is mild concentric left ventricular hypertrophy. 5. Overall left ventricular systolic function is low-normal with, an EF between 50 - 55 %. 6. Left ventricular fillimg pressure cannot be estimated due to paced rhythm. 7. The right ventricle is normal in size. 8. The left atrial size is normal. 9. Normal LA size by volume 22+/-6 ml/m2. 10. The right atrial size is normal. 11. There is mild aortic regurgitation. 12. There is mild aortic stenosis present. 13. Peak/mean gradient across the Aortic Valve is 14.52mmHg / 8.91mmHg. 14. Mild mitral annular calcification present. 15. Mild mitral regurgitation is present. 16. Mild tricuspid regurgitation present. 17. There is no evidence of pulmonary hypertension. 18. The right ventricular systolic pressure, as measured by Doppler, is 11.77mmHg. 19. Trace/mild (physiologic) pulmonic regurgitation. 20. The aortic root size is normal. 21. There is no pericardial effusion. TEAM LEAD: Sravanthi Rubio RDCS
[2019-05-10] MEDS: COLESTID PO SCH (12:05)
[2019-05-10] MEDS: NALOXEGOL OXALATE PO SCH (12:06)
[2019-05-10 12:07] VITALS: BMI 31.1
[2019-05-10] MEDS: LISINOPRIL 5 MG TAB PO SCH (12:36)
[2019-05-10] MEDS: SPIRONOLACTONE 25 MG TAB PO SCH (12:36)
[2019-05-10] MEDS: ALLOPURINOL 300 MG TAB PO SCH (15:13)
[2019-05-10 16:39] LABS: Glucose,Whole Blood 120 mg/dL (75-99)
[2019-05-10 20:23] LABS: Glucose,Whole Blood 163 mg/dL (75-99)
[2019-05-10] MEDS: risperiDONE 1 MG TAB PO SCH (20:33)
[2019-05-10] MEDS: traZODone HCL 50 MG TAB PO SCH (20:33)
[2019-05-10] MEDS: ATORVASTATIN 20 MG TAB PO SCH (20:33)
[2019-05-10] MEDS: CITALOPRAM HYDROBROMIDE 20 MG TAB PO SCH (20:34)
--- NOTE | 2019-05-10 23:26 | P.PN ---
Subjective Progress Note Date: 05/10/19 She continues to require 2-3 L O2 today but does feel her breathing is improved. She does complain of weakness and shortness of breath with ADLs. Objective - Vital Signs Vital signs: Vital Signs Temp 97.0 F L 05/10/19 20:00 Pulse 78 05/10/19 20:00 Resp 18 05/10/19 20:00 BP 135/74 05/10/19 20:00 Pulse Ox 96 05/10/19 20:00 Intake & Output 05/10/19 05/10/19 05/11/19 06:59 18:59 06:59 Intake Total 462 222 Output Total 3975 1650 Balance -3975 -1188 222 Weight 77.111 kg Intake: Oral 462 222 Output: Urine 3975 1650 Other: Voiding Method Indwelling Catheter Indwelling Catheter Indwelling Catheter - Exam General: well nourished, well developed, NAD. Vitals reviewed. 3 L O2 Lungs: normal respiratory effort, no wheezes. Crackles at bases CV: Regular rate and rhythm, no murmur. Peripheral pulses 2+ Abdomen: soft, nondistended, no organomegaly Skin: warm and dry. Neuro: A&Ox3, normal mood and affect - Labs CBC & Chem 7: 05/10/19 05:43 05/10/19 05:43 Labs: Abnormal Lab Results - Last 24 Hours (Table) 05/10/19 05/10/19 05/10/19 Range/Units 05:43 05:43 06:35 Hgb 11.3 L (11.4-16.0) gm/dL RDW 16.7 H (11.5-15.5) % BUN 25 H (7-17) mg/dL Glucose 149 H (74-99) mg/dL POC Glucose (mg/dL) 144 H (75-99) mg/dL 05/10/19 05/10/19 05/10/19 Range/Units 11:40 16:38 20:22 Hgb (11.4-16.0) gm/dL RDW (11.5-15.5) % BUN (7-17) mg/dL Glucose (74-99) mg/dL POC Glucose (mg/dL) 180 H 120 H 163 H (75-99) mg/dL Assessment and Plan (1) Acute exacerbation of CHF (congestive heart failure) Current Visit: Yes Status: Acute Code(s): I50.9 - HEART FAILURE, UNSPECIFIED SNOMED Code(s): 589955430 (2) Acute pulmonary edema Current Visit: Yes Status: Acute Code(s): J81.0 - ACUTE PULMONARY EDEMA SNOMED Code(s): 10928854 (3) Type 2 diabetes mellitus Current Visit: Yes Status: Acute Code(s): E11.9 - TYPE 2 DIABETES MELLITUS WITHOUT COMPLICATIONS SNOMED Code(s): 34573357 Plan: 1. CHF exacerbation. Secondary to noncompliance. Education on reason for lasix. Continue IV lasix, consider switch to PO tomorrow. Wean O2 as tolerated. PT/OT 2. CAD. Continue lipitor and lopressor 3. T2DM. continue metformin and glipizide. Sliding scale
[2019-05-11 06:16] LABS: Basophils # (A) 0.1 k/uL (0-0.2); Basophils % (A) 1 %; Eosinophils # (A) 0.2 k/uL (0-0.7); Eosinophils % (A) 2 %; HCT 38.6 % (34.0-46.0); HGB 12.5 gm/dL (11.4-16.0); Lymphocytes # (A) 1.5 k/uL (1.0-4.8); Lymphocytes % (A) 14 %; MCH 28.2 pg (25.0-35.0); MCHC 32.5 g/dL (31.0-37.0); MCV 86.9 fL (80.0-100.0); Mean Platelet Volume 7.9; Monocytes # (A) 0.7 k/uL (0-1.0); Monocytes % (A) 7 %; Neutrophils # (A) 7.7 k/uL (1.3-7.7); Neutrophils % (A) 73 %; Platelet Count 201 k/uL (150-450); RBC 4.45 m/uL (3.80-5.40); RDW 15.8 % (11.5-15.5); WBC 10.5 k/uL (3.8-10.6)
[2019-05-11 06:32] LABS: Glucose,Whole Blood 191 mg/dL (75-99)
[2019-05-11 06:43] LABS: Calcium 9.5 mg/dL (8.4-10.2); Potassium 3.6 mmol/L (3.5-5.1)
[2019-05-11] MEDS: metFORMIN 500 MG TAB PO SCH ×2 (06:45→16:12)
[2019-05-11] MEDS: INSULIN ASPART (NovoLOG) 100 UNIT/ML VIAL SQ SCH ×4 (06:45→21:02)
[2019-05-11] MEDS: NALOXEGOL OXALATE PO SCH (09:29)
[2019-05-11] MEDS: COLESTID PO SCH (09:29)
[2019-05-11] MEDS: MIRTAZAPINE 15 MG TAB PO SCH (09:29)
[2019-05-11] MEDS: SPIRONOLACTONE 25 MG TAB PO SCH (09:29)
[2019-05-11] MEDS: glipiZIDE 5 MG TAB PO SCH (09:29)
[2019-05-11] MEDS: FUROSEMIDE 10 MG/ML 4 ML VIAL IV SCH ×2 (09:29→21:02)
[2019-05-11] MEDS: METOPROLOL SUCCINATE (ER) 50 MG TAB.ER.24H PO SCH (09:29)
[2019-05-11] MEDS: LISINOPRIL 5 MG TAB PO SCH (09:29)
[2019-05-11] MEDS: DOCUSATE 100 MG CAP PO SCH (10:17)
--- NOTE | 2019-05-11 10:27 | P.PN ---
Subjective Progress Note Date: 05/11/19 This is an 78-year-old female admitted with acute CHF exacerbation and multiple other medical issues. Diuresing well on Lasix IV push, with 24-hour I&O reflecting a negative fluid balance. Weight has decreased by nearly 3 kg. creatinine mildly elevated 1.18. Breathing much better, tolerating lying flat, decreased edema. Maintaining oxygen in the 90s on 2 L nasal cannula which is currently in the process of being weaned off. Complains of constipation, small bowel movement this morning. Objective - Vital Signs Vital signs: Vital Signs Temp 97.9 F 05/11/19 07:44 Pulse 89 05/11/19 07:45 Resp 18 05/11/19 07:45 BP 114/65 05/11/19 07:44 Pulse Ox 97 05/11/19 07:44 Intake & Output 05/10/19 05/11/19 05/11/19 18:59 06:59 18:59 Intake Total 462 222 240 Output Total 1650 1100 Balance -1188 -878 240 Weight 77.111 kg 73.8 kg Intake: Oral 462 222 240 Output: Urine 1650 1100 Uretheral ([place]) 750 Other: Voiding Method Indwelling Catheter Indwelling Catheter Indwelling Catheter # Voids 0 - Exam General: Alert and oriented 3, no acute distress Lungs: normal respiratory effort, lungs totally clear, no rhonchi, no crackles, no wheezing CV: Regular rate and rhythm, no murmur. Peripheral pulses 2+ Abdomen: soft, nondistended, no organomegaly. Positive bowel sounds. Skin: warm and dry. Neuro: A&Ox3, normal mood and affect. No focal deficits - Labs CBC & Chem 7: 05/11/19 04:59 05/11/19 04:59 Labs: Abnormal Lab Results - Last 24 Hours (Table) 05/10/19 05/10/19 05/10/19 Range/Units 11:40 16:38 20:22 RDW (11.5-15.5) % BUN (7-17) mg/dL Creatinine (0.52-1.04) mg/dL Glucose (74-99) mg/dL POC Glucose (mg/dL) 180 H 120 H 163 H (75-99) mg/dL 05/11/19 05/11/19 05/11/19 Range/Units 04:59 04:59 06:31 RDW 15.8 H (11.5-15.5) % BUN 35 H (7-17) mg/dL Creatinine 1.18 H (0.52-1.04) mg/dL Glucose 165 H (74-99) mg/dL POC Glucose (mg/dL) 191 H (75-99) mg/dL Assessment and Plan Assessment: (1) Acute exacerbation of CHF (congestive heart failure) Current Visit: Yes Status: Acute Code(s): I50.9 - HEART FAILURE, UNSPECIFIED SNOMED Code(s): 448280269 (2) Acute pulmonary edema Current Visit: Yes Status: Acute Code(s): J81.0 - ACUTE PULMONARY EDEMA SNOMED Code(s): 29836454 (3) Type 2 diabetes mellitus Current Visit: Yes Status: Acute Code(s): E11.9 - TYPE 2 DIABETES MELLITUS WITHOUT COMPLICATIONS SNOMED Code(s): 36276628 Plan: Continue current medication regime ,monitoring and symptomatic treatment. Maintain on Lasix IV push today, converted over to oral in the a.m.. Continue weaning off oxygen. Colace added to med regime for complaints of constipation. Discharge planning in progress for tomorrow. The impression and plan of care has been dictated as directed. : I performed a history and examination of this patient, discussed the same with the dictator. I agree with the dictator's note ,documented as a scribe. Any additional findings or plans will be noted.
[2019-05-11 11:37] LABS: Glucose,Whole Blood 167 mg/dL (75-99)
--- NOTE | 2019-05-11 13:03 | CDI ---
Documentation Clarification Form Date: 05/11/2019 12:45:08 PM From: Ramandepe Kendrick Phone: '[phone] Admit Date: 05/09/2019 12:32:00 PM Patient Name: Leonie Billings Visit Number: [id number] Discharge Date: ATTENTION: The Clinical Documentation Specialists (CDI) and [facility] Coding Staff appreciate your assistance in clarifying documentation. Please respond to the clarification below the line at the bottom and electronically sign. The CDI & [facility] Coding staff will review the response and follow-up if needed. Please note: Queries are made part of the Legal Health Record. If you have any questions, please contact the author of this message via ITS. Dr. Delvin Reardon The patient presented with shortness of breath. History/Risk Factors: 78 year old female with a Medical History CHF h/o CVA, DM , HTN, RA , Gout Tobacco use: smoked approx 20 yrs, 1PPD quit in 2005. Clinical Indicators: per 05/11/2019 progress note maintaining oxygen in the 90s on 2L nasal cannula which is currently in the process of being weaned off. Vital signs: 152/90 78 98.1 20 95% 5L Lung/Breathing assessment: Diminished breath sounds at the bases. A few scattered rhonchi and basilar crackles Per H & P Physical Examination. Treatment: Lasix ivp q 12 hrs. Breathing tx Ventolin O2 on admission 5L nasal cannula , weaned down to 2L 05/11/2019 In your professional opinion, can you please clarify if these findings signify one of the following conditions? Acute Respiratory Failure (further specify (if known)): With hypercapnia? (pCO2 >50 and pH <7.35) With hypoxia? (pO2 <60 mm Hg or SpO2 <91% on room air) Acute Respiratory Distress Acute Respiratory Insufficiency Other Diagnosis, please specify Unable to determine (Last Revision: November 2017) Acute respiratory failure with hypoxia MTDD
[2019-05-11] MEDS: ALLOPURINOL 300 MG TAB PO SCH (16:12)
[2019-05-11 17:18] LABS: Glucose,Whole Blood 123 mg/dL (75-99)
[2019-05-11 20:45] LABS: Glucose,Whole Blood 108 mg/dL (75-99)
[2019-05-11] MEDS: ATORVASTATIN 20 MG TAB PO SCH (21:02)
[2019-05-11] MEDS: CITALOPRAM HYDROBROMIDE 20 MG TAB PO SCH (21:02)
[2019-05-11] MEDS: risperiDONE 1 MG TAB PO SCH (21:02)
[2019-05-11] MEDS: traZODone HCL 50 MG TAB PO SCH (21:02)
--- NOTE | 2019-05-11 22:37 | PN ---
PROGRESS NOTE This patient is admitted with symptoms of shortness of breath. The patient is feeling better. Her breathing is improved. Patient is comfortable lying in the bed. Respirations are not labored. The patient is afebrile. Blood pressure is 120/76 mmHg. Oxygen saturation is 95%. First and second heart sounds are heard. Lungs examination reveals bilateral basal rales. The patient's urine output remains good. Creatinine is 1.18. We will continue the current medications and recheck the chest x-ray in next 48 hours. MMODL / IJN: [id number] /
[2019-05-12 05:53] LABS: Glucose,Whole Blood 153 mg/dL (75-99)
[2019-05-12 05:54] LABS: Anisocytosis Slight; Basophils # (A) 0.1 k/uL (0-0.2); Basophils % (A) 1 %; Eosinophils # (A) 0.3 k/uL (0-0.7); Eosinophils % (A) 2 %; HGB 12.1 gm/dL (11.4-16.0); Lymphocytes # (A) 1.4 k/uL (1.0-4.8); Lymphocytes % (A) 13 %; MCH 28.2 pg (25.0-35.0); MCHC 31.9 g/dL (31.0-37.0); MCV 88.3 fL (80.0-100.0); Mean Platelet Volume 7.8; Monocytes # (A) 0.7 k/uL (0-1.0); Monocytes % (A) 7 %; Neutrophils # (A) 7.8 k/uL (1.3-7.7); Neutrophils % (A) 74 %; Platelet Count 205 k/uL (150-450); RDW 16.7 % (11.5-15.5); WBC 10.5 k/uL (3.8-10.6)
[2019-05-12 06:02] LABS: Calcium 9.1 mg/dL (8.4-10.2)
[2019-05-12] MEDS: INSULIN ASPART (NovoLOG) 100 UNIT/ML VIAL SQ SCH ×3 (06:54→17:24)
[2019-05-12] MEDS: glipiZIDE 5 MG TAB PO SCH (06:57)
[2019-05-12] MEDS: metFORMIN 500 MG TAB PO SCH ×2 (06:57→17:27)
[2019-05-12 07:59] VITALS: RESP 18
[2019-05-12] MEDS: DOCUSATE 100 MG CAP PO SCH (08:01)
[2019-05-12] MEDS: FUROSEMIDE 10 MG/ML 4 ML VIAL IV SCH (08:01)
[2019-05-12] MEDS: LISINOPRIL 5 MG TAB PO SCH (08:01)
[2019-05-12] MEDS: SPIRONOLACTONE 25 MG TAB PO SCH (08:01)
[2019-05-12] MEDS: METOPROLOL SUCCINATE (ER) 50 MG TAB.ER.24H PO SCH (08:02)
[2019-05-12] MEDS: MIRTAZAPINE 15 MG TAB PO SCH (08:02)
[2019-05-12] MEDS: NALOXEGOL OXALATE PO SCH (08:03)
[2019-05-12] MEDS: COLESTID PO SCH (08:03)
[2019-05-12 11:50] LABS: Glucose,Whole Blood 120 mg/dL (75-99)
[2019-05-12 12:00] VITALS: BP 110/69; PULSE 75; TEMP 97.3
--- NOTE | 2019-05-12 15:58 | P.DS ---
Providers Date of admission: 05/09/19 12:32 Expected date of discharge: 05/12/19 Attending physician: Delvin Reardon MD Consults: 05/09/19 12:32 Consult Physician Routine Consulting Provider: [facility] Consult Reason/Comments: Congestive heart failure Do you want consulting provider notified?: Yes Primary care physician: Mariel Nix [facility] Hospital Course: Final Diagnoses: (1) Acute exacerbation of CHF (congestive heart failure) Current Visit: Yes Status: Acute Code(s): I50.9 - HEART FAILURE, UNSPECIFIED SNOMED Code(s): 108125897 (2) Acute pulmonary edema Current Visit: Yes Status: Acute Code(s): J81.0 - ACUTE PULMONARY EDEMA SNOMED Code(s): 66727910 (3) Type 2 diabetes mellitus Current Visit: Yes Status: Acute Code(s): E11.9 - TYPE 2 DIABETES MELLITUS WITHOUT COMPLICATIONS SNOMED Code(s): 78623943 Hospital course:This is an 78-year-old female admitted with acute CHF exacerbation and multiple other medical issues. Diuresing well on Lasix IV push, with 24-hour I&O reflecting a negative fluid balance. Weight has decreased by nearly 3 kg. creatinine mildly elevated 1.18. Breathing much better, tolerating lying flat, decreased edema. Maintaining oxygen in the 90s on 2 L nasal cannula which is currently in the process of being weaned off. Complains of constipation, small bowel movement this morning. Significant clinical improvement. Patient is being discharged home in a stable condition with guarded prognosis. JASRPEET inhibitor currently on hold secondary to borderline hypotension and renal function. Creatinine currently 1.48. - Exam General: Alert and oriented 3, no acute distress Lungs: normal respiratory effort, lungs totally clear, no rhonchi, no crackles, no wheezing CV: Regular rate and rhythm, no murmur. Peripheral pulses 2+ Abdomen: soft, nondistended, no organomegaly. Positive bowel sounds. Skin: warm and dry. Neuro: A&Ox3, normal mood and affect. No focal deficits The impression and plan of care has been dictated as directed. : I performed a history and examination of this patient, discussed the same with the dictator. I agree with the dictator's note ,documented as a scribe. Any additional findings or plans will be noted. Time taken: 35 min. Patient Condition at Discharge: Stable Plan - Discharge Summary Discharge Rx Participant: No New Discharge Prescriptions: New Docusate [Colace] 100 mg PO DAILY cap Furosemide [Lasix] 40 mg PO DAILY #30 tablet Continue Allopurinol [Zyloprim] 300 mg PO DAILY@1500 Citalopram Hydrobromide [Citalopram HBr] 40 mg PO HS risperiDONE [RisperDAL] 1 mg PO HS Simvastatin [Zocor] 10 mg PO HS Metoprolol Succinate (ER) [Toprol XL] 50 mg PO DAILY metFORMIN HCL [Glucophage] 500 mg PO BID #60 tab Mirtazapine 7.5 mg PO DAILY Albuterol Sulfate [Albuterol Sulfate Hfa] 1 - 2 puff PO RT-Q4H PRN PRN Reason: Shortness Of Breath traZODone HCL 50 mg PO HS Colestipol HCl 1 tab PO DAILY Naloxegol Oxalate [Movantik] 25 mg PO DAILY glipiZIDE [Glucotrol] 5 mg PO DAILY Discontinued Gabapentin [Neurontin] 400 mg PO TID Discharge Medication List Allopurinol [Zyloprim] 300 mg PO DAILY@1500 01/22/16 [History] Citalopram Hydrobromide [Citalopram HBr] 40 mg PO HS 01/22/16 [History] Simvastatin [Zocor] 10 mg PO HS 01/22/16 [History] risperiDONE [RisperDAL] 1 mg PO HS 01/22/16 [History] Metoprolol Succinate (ER) [Toprol XL] 50 mg PO DAILY 12/20/17 [History] metFORMIN HCL [Glucophage] 500 mg PO BID #60 tab 12/22/17 [Rx] Albuterol Sulfate [Albuterol Sulfate Hfa] 1 - 2 puff PO RT-Q4H PRN 05/09/19 [History] Colestipol HCl 1 tab PO DAILY 05/09/19 [History] Mirtazapine 7.5 mg PO DAILY 05/09/19 [History] Naloxegol Oxalate [Movantik] 25 mg PO DAILY 05/09/19 [History] glipiZIDE [Glucotrol] 5 mg PO DAILY 05/09/19 [History] traZODone HCL 50 mg PO HS 05/09/19 [History] Docusate [Colace] 100 mg PO DAILY cap 05/12/19 [Rx] Furosemide [Lasix] 40 mg PO DAILY #30 tablet 05/12/19 [Rx] Follow up Appointment(s)/Referral(s): [facility], [NON-STAFF] - As Needed Mariel Nix DO [Primary Care Provider] - 05/17/19 11:00 am ([place] at [place] office) Rigoberto Brownlee MD [STAFF PHYSICIAN] - 05/28/19 2:45 pm (Friday in [place]) Ambulatory/Diagnostic Orders: Complete Blood Count w/diff [LAB.AMB] Time Frame: 3 Days, Location: None Selected Patient Instructions/Handouts: Heart Failure (DC) Activity/Diet/Wound Care/Special Instructions: JASPREET inhibitor placed on hold related to borderline hypotension, renal function .Glucometer order faxed to [facility] in [place] at [address], [address]. Patient is to flower picker glucometer after discharge.
--- NOTE | 2019-05-12 16:13 | XR ---
EXAMINATION TYPE: XR chest 2V DATE OF EXAM: 05/12/2019 COMPARISON: 05/09/2019 HISTORY: 78-year-old female CHF TECHNIQUE: AP and lateral views FINDINGS: Left anterior chest wall pacemaker generator with right atrial, right ventricular, and coronary sinus leads. Heart upper limits of normal in size. Mild interstitial prominence persists the patient's sma ll effusions have resolved. IMPRESSION: Interval improvement. Residual mild pulmonary vascular congestion but resolution of previous trace ef fusions.
[2019-05-12 16:36] LABS: Glucose,Whole Blood 109 mg/dL (75-99)
[2019-05-12] MEDS: ALLOPURINOL 300 MG TAB PO SCH (17:27)
--- NOTE | 2019-05-12 19:43 | PN ---
PROGRESS NOTE Mrs. Billings is an is 78-year-old female who was admitted with symptoms of shortness of breath and was treated for heart failure. Patient is doing better. Denies any shortness of breath, orthopnea or PND. She has some non-productive cough. Oxygen saturation is 94%. Patient's respirations are nonlabored. Blood pressure is 110/69 mmHg. First and second heart sounds are normal. Lungs are fairly clear to auscultation and percussion. Patient's creatinine remains at 1.48. IMPRESSION: Congestive heart failure, improved. Continue current medications. Echocardiogram reveals normal left ventricular systolic function. Patient can be discharged home in the next 24-48 hours. Thank you. 1. Next the patient is I given that this patient was admitted with congestive cardiac failure, underwent transesophageal echocardiogram yesterday patient has found to be moderate degree of aortic stenosis. Aortic valve area could not be measured. The patient also has a moderate degree of mitral regurgitation. He is feeling well. Denies any shortness of breath, orthopnea or PND blood pressure is heart rate is 89 per minute, blood pressure is 108/72 mmHg patient's murmurs are unchanged. The patient is exactly not sure that he whether he under wants to undergo any kind of intervention procedure the patient is going to be high risk for any kind of procedure because of the diffuse peripheral vascular disease. The patient is going to be followed by Dr. Hopper in the office. May need further evaluation with the dobutamine echocardiogram to assess the severity of the aortic stenosis and. 2. Patient is Sergio salvador and this patient has a chronic atrial fibrillation status post recent PCI. The patient has been had some coffee-grounds emesis and questionable blood in the colostomy. Patient is otherwise feeling comfortable denies any chest pain denies any shortness of breath blood pressure is 101/64 mmHg. First and second heart sounds are normal lungs are clear to auscultation and percussion patient's initial hemoglobin is 15.2. We will discontinue aspirin and continue the patient on Eliquis and Plavix and await the GI evaluation thank you. 3. The patient is Brown are the [place] this patient is in room 358. Beta 1 patient's . This patient has a cardiomyopathy with an impaired a significantly impaired left ventricular systolic function. The patient gives a history that he has been having still some symptoms of shortness of breath and some non-productive cough. Denies any orthopnea are PND. Chest x-ray shows very mild pulmonary congestion. We will first and second heart sounds are normal lungs are clinically clear to auscultation and percussion patient's respirations are otherwise not labored. Oxygen saturation is 92%. We will ambulate the patient and check oxygen saturation is urine output remains good. The patient's weight is down about 7 kg back continue IV Lasix for another 24 hours and the patient is feeling better, he will be discharged home tomorrow. 4. Patient is Jennifer thrombus. This patient is in room 359, bed 1. The patient this patient was admitted with acute anterior wall myocardial infarction and underwent a stent to the LAD. Patient is doing fairly well. Denies any chest pain denies any shortness of breath blood pressure is 127/83 mmHg, heart rate is 80 per minute. First and second heart sounds are normal lungs are clinically clear to auscultation and percussion patient's creatinine is 0.72. Initial troponin was 0.059. We will get we will obtain for the other troponin q.6 hours x2. Continue the current medications. Echo and Doppler study were obtained thank you. 5. Patient is medical [facility] this patient was admitted with symptoms of syncope, possible TIA or stroke. Patient is going to get an MRI today. Blood pressure is 116/62 mmHg heart rate is 66 per minute. First and second heart sounds are normal lungs are clinically clear to auscultation and percussion abdomen is soft, we will continue the current medications of weight the results of MRI thank you. 6. Patient is rowell Marti. This patient was admitted with congestive cardiac failure patient has an acute on chronic renal failure. Patient seems to be responding with IV Lasix. Her breathing is improved. Chest x-ray still shows evidence of congestive changes as well as pleural effusion. Blood pressure is 156/67 mmHg. First and second heart sounds are normal lungs are clear to auscultation and percussion patient is negative the patient had a urine output of 700 cc yesterday. Creatinine is 2.5. We will continue the Lasix drip and follow the chest x-ray. Hopefully her pleural effusion resolves and she may not need thoracenteses thank you. 7. The patient is a Hina Augmentin. This patient was admitted with a congestive cardiac failure patient is feeling well. Denies any shortness of breath, orthopnea or PND. She had some non-productive cough during the night. Blood pressure is 100/54 mmHg. First and second heart sounds are normal lungs examination revealed a few scattered wheezes. The patient's chest x-ray is shows improvement in the congestive cardiac failure. Patient's creatinine is 0.93. We will discontinue IV Lasix and continue the patient on p.o. Lasix. Patient can be discharged home. 8. 24-48 hours thank you. 9. Next the patient is a the [facility] patient is in room 373, bed 1 patient's . This patient is admitted with acute exacerbation of chronic COPD. Patient has an evidence of the patient has a history of chronic atrial fibrillation. Patient underwent a needle aspiration biopsy of the mass in the right lung blood pressure, repeat chest x-ray does not show any significant pneumothorax. Blood pressure is 128/61 mmHg. First and second heart sounds are normal lungs examination revealed bilateral scattered rhonchi. Continue the current medications the patient's Lasix. We will switch the patient's to oral Lasix from tomorrow. 10.Patient is they would lock stent in this patient was admitted with atrial fibrillation and rapid ventricular response the patient is a rather poor historian. He is feeling well. He is not in any respiratory distress. The heart rate is now 80-90 per minute blood pressure is 133/78 mmHg. Respirations are not labored. First and second heart sounds are normal lungs are clinically clear to auscultation and percussion patient's hemoglobin is 9 g. Creatinine is 1.0. Continue the current medications patient can be discharged home on metoprolol 75 mg b.i.d. and. 11.The patient is Jesica crawford. This patient is admitted with septic arthritis. He is feeling better. Patient's stay has some fluid in the joint and she may undergo a drainage of the joint today. Blood pressure is 127/66 mmHg. First and second heart sounds are normal lungs are clinically clear to auscultation and percussion. Chest x-ray done yesterday still shows evidence of bilateral pleural effusion. No significant failure was noted patient's proBNP level is down to 300. We will continue the patient on IV Lasix and follow the chest x-ray and. 12.Patient these I agrees heart this patient was admitted with congestive cardiac failure patient is feeling better her breathing is improved blood pressure is 144/84 mmHg heart S1 and S2 normal. Lungs are reveal bilateral diminished air entry. Patient does have a moderate degree of pleural effusion. Pulmonary consultation was advised at present we will continue the patient on diuretic. The patient may benefit from plus and this is thank you hold on place. 13.Patient is lately and every this patient is admitted with congestive cardiac failure. Patient has a moderate degree of aortic stenosis. Patient had some choking as an episode this morning is otherwise remains stable. Blood pressure is 116/69 mmHg, oxygen saturation is 94% first and second heart sounds are normal lungs examination revealed bilateral diminished air entry. Patient is undergoing swallow evaluation. Continue the current medications. 14.Next the patient is a adi's. MMODL / IJN: [id number] /
--- NOTE | 2019-05-17 05:35 | CDI ---
Documentation Clarification Form Date: 05/17/2019 5:23:28 AM From: Charo Negron Phone: If you have a question about this query, please contact Maddie Jimenez Human Resources Operations Manager at [phone] between 8am and 5pm. Admit Date: 05/09/2019 12:32:00 PM Patient Name: Leonie Billings Visit Number: [id number] Discharge Date: 05/12/2019 5:42:00 PM ATTENTION: The Clinical Documentation Specialists (CDI) and [facility] Coding Staff appreciate your assistance in clarifying documentation. Please respond to the clarification below the line at the bottom and electronically sign. The CDI & [facility] Coding staff will review the response and follow-up if needed. Please note: Queries are made part of the Legal Health Record. If you have any questions, please contact the author of this message via ITS. Dr. Linus Andrade Exacerbation of CHF is documented throughout the chart. Please clarify whether systolic or diastolic or both.. History/Risk Factors: Acute CHF, CKD, pacemeaker, CAD HTN Clinical Indicators: SOB VS/Pulse OX: 95% on 5 L on admit BNP: 767 Echocardiogram Results: AR, MR, TR Chest X Ray: mild pulmonary vascular congestion Treatment: Lasix In your professional opinion, can you please clarify the acuity and type of CHF if known? Systolic Heart Failure: Acute Chronic Acute on Chronic Diastolic Heart Failure: Acute Chronic Acute on Chronic Systolic & Diastolic Heart Failure: Acute Chronic Acute on Chronic Heart Failure Unable to Determine Other, please specify MTDD
== END 2019-05-12 17:42 | disposition home health service (06) | DRG 291 ==
LOC: EC 11:59 → 3SCARD 12:32
PROVIDERS: ADMIT Family Medicine; ATTEND Family Medicine
DX: I13.0 Hypertensive heart and chronic kidney disease with heart failure and stage 1 through stage 4 chronic kidney disease, or unspecified chronic kidney disease (principal); I50.33 Acute on chronic diastolic (congestive) heart failure; J96.01 Acute respiratory failure with hypoxia; J44.1 Chronic obstructive pulmonary disease with (acute) exacerbation; N17.9 Acute kidney failure, unspecified; I25.2 Old myocardial infarction; E78.5 Hyperlipidemia, unspecified; F43.10 Post-traumatic stress disorder, unspecified; I08.0 Rheumatic disorders of both mitral and aortic valves; I42.9 Cardiomyopathy, unspecified; I48.2 Chronic atrial fibrillation; Z86.79 Personal history of other diseases of the circulatory system; K21.9 Gastro-esophageal reflux disease without esophagitis; K59.00 Constipation, unspecified; M06.9 Rheumatoid arthritis, unspecified; M10.9 Gout, unspecified; N18.9 Chronic kidney disease, unspecified; Z79.82 Long term (current) use of aspirin; Z79.84 Long term (current) use of oral hypoglycemic drugs; Z79.899 Other long term (current) drug therapy; Z80.3 Family history of malignant neoplasm of breast; Z82.49 Family history of ischemic heart disease and other diseases of the circulatory system; E11.22 Type 2 diabetes mellitus with diabetic chronic kidney disease; E11.51 Type 2 diabetes mellitus with diabetic peripheral angiopathy without gangrene; Z85.3 Personal history of malignant neoplasm of breast; Z86.73 Personal history of transient ischemic attack (TIA), and cerebral infarction without residual deficits; Z87.891 Personal history of nicotine dependence; Z90.11 Acquired absence of right breast and nipple; Z90.49 Acquired absence of other specified parts of digestive tract; Z95.0 Presence of cardiac pacemaker; Z96.641 Presence of right artificial hip joint; Z98.1 Arthrodesis status; Z98.61 Coronary angioplasty status; Z82.0 Family history of epilepsy and other diseases of the nervous system; Z88.5 Allergy status to narcotic agent; Z88.2 Allergy status to sulfonamides; Z88.8 Allergy status to other drugs, medicaments and biological substances; G43.909 Migraine, unspecified, not intractable, without status migrainosus
CPT/HCPCS: 71046; 80048; 83880; 85025; 93306; 94760; 99285

== ENCOUNTER → 2019-10-13 | Outpatient (CLI) | payer OTHER ==
--- NOTE | 2019-10-13 13:29 | MM ---
Reason for exam: additional evaluation requested from prior study. Last mammogram was performed 1 year and 3 months ago. History: Patient is postmenopausal and has history of breast cancer at age 69. Family history of breast cancer in sister at age 60. Mastectomy of the right breast, January 15, 2010. Malignant right mammotome panel of the right breast, January 01, 2010. Chemotherapy, 2009. Took estrogen for 12 years. Taking antineoplastic for 6 months beginning at age 69. Physical Findings: Nurse did not find any significant physical abnormalities on exam. MG 3D Diag Mammo W/Cad LT CC, MLO, and XCCL view(s) were taken of the left breast. Prior study comparison: July 03, 2018, left breast MG 3d diag mammo w/cad LT. November 20, 2016, left breast MG 3d diag mammo w/cad LT. The breast tissue is heterogeneously dense. This may lower the sensitivity of mammography. Benign appearing calcifications in the left breast. The previously seen abnormality resolves on additional views and appears as fibroglandular tissue compatible with summation. Lateral asymmetry. Left cardiac device. These results were verbally communicated with the patient and result sheet given to the patient on 10/13/19. ASSESSMENT: Benign, BI-RAD 2 RECOMMENDATION: Follow-up diagnostic mammogram of the left breast in 1 year.
== END | disposition home or self-care (01) ==
LOC: RADMAMWWP 10:39
PROVIDERS: ATTEND Family Medicine
DX: Z08 Encounter for follow-up examination after completed treatment for malignant neoplasm (principal); Z85.3 Personal history of malignant neoplasm of breast
CPT/HCPCS: 77061; 77065